=== PATIENT | female | born 1945 | race Caucasian/White ===

== ENCOUNTER 2017-02-02 10:18 | Outpatient (CLI) | payer MEDICARE, BC, MEDICAID ==
--- OUTSIDE RECORDS SUMMARY | 2017-02-02 10:36 | XMS | Clinical Summary ---
:1945 Author Organization [facility] Address [address] [place] [address] Phone Care Team Providers Name Role Phone , Primary Care Provider Unavailable Allergies Not on File Current Medications Not on file Active Problems Not on file Social History Tobacco Use Types Packs/Day Years Used Date Never Assessed Sex Assigned at Date Recorded Not on file Last Filed Vital Signs Not on file Plan of Treatment Not on file Results Not on filefrom Last 3 Months
--- NOTE | 2017-02-02 15:06 | CT ---
CT ABDOMEN WITH AND WITHOUT IV CONTRAST CT PELVIS WITH AND WITHOUT IV CONTRAST: Date: 02-02-17 History: History of recurrent urinary tract infections. Incomplete urinary bladder emptying. Comparison: CT angiogram of abdomen and pelvis, 06-07-12. FINDINGS: There is a 2.4 cm area of heterogeneity in the anterior segment of the right hepatic lobe previously seen on CT angiogram in 2012. Again, the exact etiology for this area of heterogeneity is uncertain . However, given stability over this period time suggests a nonaggressive process and could be relat ed to either prior hepatic injury or possibly related to shunting in this region. Liver otherwise duarte s a normal CT appearance. Multiple surgical clips are seen, likely related to prior cholecystectomy. There is subcentimeter hyperdense bilateral renal lesions, the majority of which are difficult to fu rther characterize. There is a hyperdense lesion in the region of the inferior pole right kidney kelly suring 1.8 cm, demonstrates fluid attenuation consistent with a cyst. There are two hyperdense cysti c lesions seen in the inferior pole right kidney with suggestion of mild enhancement of the more pos teriorly located hyperdense cystic structure. While this suggests enhancement, findings are thought most likely related to hyperdense Bosniak type II renal cystic lesions. Nevertheless, follow up eval uation is recommended given suggestion of mild enhancement. No additional enhancing renal lesion is seen bilaterally. Calcified granuloma is seen in the spleen. The bilateral adrenal glands and urinary bladder demonstrate a normal CT appearance. The distal righ t ureter is incompletely imaged due to artifact from bilateral total hip prostheses. Ureters otherwi se bilaterally have a normal appearance without a ureteral calculus seen. There are calcifications s een in the region of each renal hilum most likely related to vascular calcifications. Prominent vascular calcifications are again seen in the abdominal aorta involving the iliac arteries . Evidence of prior hysterectomy. Degenerative changes are seen in the spine. No other interval change. IMPRESSION: 1. Increased density cystic lesions inferior pole right kidney with suggestion of mild enhancement o f most posteriorly located hyperdense cystic lesions. These lesions are most likely related to Bosni ak type II cystic renal lesions, but suggestion of mild enhancement warrants continued follow up. 2. Bilateral renal cysts with too small to characterize hypodense renal lesions bilaterally. 3. Distal right ureter is not well seen due to artifact from bilateral hip prostheses, but there is no hydronephrosis or hydroureter and no definite ureteral calculus is visualized. 4. Stable area of heterogeneity in the right hepatic lobe of uncertain etiology. However, given stab ility since the prior study in 2013, suggests a nonaggressive process. 5. Hysterectomy. 6. Post cholecystectomy changes with persistent prominent dilatation of the extrahepatic common duct , stable from 2013. POS: [facility]
[2017-02-02] MEDS ORDERED: Iopamidol 370 76% 100 ML VIAL ONE (15:52)
== END 2017-02-02 10:19 | disposition home or self-care (01) ==
LOC: CT 10:18
PROVIDERS: ATTEND Urology
DX: N39.41 Urge incontinence (principal); R33.9 Retention of urine, unspecified; N28.1 Cyst of kidney, acquired; K76.89 Other specified diseases of liver; Z87.440 Personal history of urinary (tract) infections; Z90.710 Acquired absence of both cervix and uterus; Z90.49 Acquired absence of other specified parts of digestive tract
CPT/HCPCS: 74178

== ENCOUNTER 2017-04-01 10:24 | Outpatient (CLI) | payer MEDICARE, BC, MEDICAID ==
[2017-04-01 11:08] LABS: Anion Gap 13 mmol/L (10-20); BUN (Urea Nitrogen) 19 mg/dL (9.8-20.1); Calc. Creatinine Clearance 0 mL/min (70-130); Calcium 10.6 mg/dL (7.8-10.44); Carbon Dioxide 28 mmol/L (23-31); Chloride 103 mmol/L (98-107); Estimated GFR-MDRD 57
--- NOTE | 2017-04-01 12:52 | CT ---
CT ABDOMEN WITH AND WITHOUT IV CONTRAST: Indication: Evaluate ureteral cysts. Comparison: 02-02-17, 06-07-12 CTA angio run off examination. FINDINGS: There is a 1.4 and 1.5 cm hyperdense cyst involving the inferior pole of the right kidney that demons trates no appreciable enhancement on today's examination. There are additional Bosniak I type cysts i nvolving the right and left kidney. There are renal vascular calcifications bilaterally. Perinephric stranding is similar appearing. Gallbladder is surgically absent. A 2.9 cm hypodense lesion involving segment 6 of the right hepatic lobe with heterogeneous enhancemen t is stable since 2012 likely reflects a slightly atypical hemangioma. The pancreas and spleen appear within normal limits. Adrenal glands are normal appearing. There are prominent vascular calcifications noted involving the abdominal pelvic vasculature. There is slight dextroscoliosis of the lumbar spine. There is diffuse osteopenia. IMPRESSION: 1. Hyperdense lesions involving the inferior pole of the right kidney are consistent with highly prot einaceous or hemorrhagic type cysts. 2. There are bilateral simple appearing renal cysts. 3. Renal vascular calcifications seen bilaterally. 4. Stable hypodense lesion involving the right hepatic lobe likely reflective of slightly atypical he mangioma. POS: [facility]
[2017-04-01 15:59] LABS: Bilirubin Negative (Negative); Blood, Urine Negative (Negative); Glucose, Urine (Dipstick) Negative (Negative); Ketone, Urine Negative (Negative); Nitrite Negative (Negative); Protein, Urine (Dipstick) Trace mg/dL (Neg-Trace); Urobilinogen 0.2 mg/dL (0.2-1.0)
[2017-04-01 16:02] LABS: Bacteria/HPF None Seen HPF (None Seen); Hyaline Casts/LPF 0-3 HYALINE CAST LPF (0-3 Hyaline); RBC/HPF 0-3 HPF (0-3); Squamous Epithelial None Seen HPF (0-3); WBC/HPF None Seen HPF (0-3)
== END 2017-04-01 10:25 | disposition home or self-care (01) ==
LOC: CT 10:24
PROVIDERS: ATTEND Urology
DX: N39.41 Urge incontinence (principal); N28.1 Cyst of kidney, acquired; N28.89 Other specified disorders of kidney and ureter; Z87.440 Personal history of urinary (tract) infections
CPT/HCPCS: 36415; 74170; 80048; 81001; 87086

== ENCOUNTER 2018-04-11 17:26 | Emergency (ER) | payer MEDICARE, BC, MEDICAID ==
[2018-04-11 18:31] LABS: #Basophils 0.1 thou/uL (0.0-0.2); #Eosinphils 0.1 thou/uL (0.0-0.7); #Lymphocytes 1.3 thou/uL (1.20-3.40); #Monocytes 0.6 thou/uL (0.11-0.59); #Neutrophils 5.3 thou/uL (1.40-6.50); %Eosinophils 1.7 % (0.0-10.0); %Lymphocytes 17.8 % (21.0-51.0); %Monocytes 7.9 % (0.0-10.0); %Neutrophils 71.6 % (42.0-75.0); Hemoglobin 11.3 g/dL (12.0-16.0); Mean Corpuscular HGB CONC 32.2 g/dL (32.0-36.0); Mean Corpuscular Hemoglobin 30.8 pg (27.0-31.0); Mean Corpuscular Volume 95.7 fL (78.0-98.0); Mean Platelet Volume 7.2 fL (7.4-10.4); Platelet Count 347 thou/uL (130-400); RBC Distribution Width 12.8 % (11.5-14.5); Red Blood Cell (RBC) Count 3.68 mill/uL (4.20-5.40); White Blood Cell (WBC) Count 7.4 thou/uL (4.8-10.8)
--- NOTE | 2018-04-11 18:40 | CT ---
CT BRAIN: 04/11/2018 PROVIDED CLINICAL HISTORY: Altered mental status. COMPARISON: 11/01/2015 FINDINGS: The ventricular system appears normal in size and morphology. There is no evidence for intracranial hemorrhage or mass effect. Chronic microvascular white matter ischemic changes are redemonstrated. There is no evidence for an acute abnormality involving the extracranial soft tissues or osseous stru ctures. IMPRESSION: No evidence for intracranial hemorrhage or mass effect. POS: [facility]
[2018-04-11 18:47] LABS: ALT (SGPT) 12 U/L (8-55); AST (SGOT) 13 U/L (5-34); Albumin 3.1 g/dL (3.4-4.8); Alkaline Phosphatase 92 U/L (40-150); Anion Gap 12 mmol/L (10-20); BUN (Urea Nitrogen) 32 mg/dL (9.8-20.1); Bilirubin, Total 0.2 mg/dL (0.2-1.2); Calc. Creatinine Clearance 0 mL/min (70-130); Calcium 9.8 mg/dL (7.8-10.44); Carbon Dioxide 25 mmol/L (23-31); Chloride 106 mmol/L (98-107); Estimated GFR-MDRD 35; Globulin 2.6 g/dL (2.4-3.5); Glucose 85 mg/dL (83-110); Potassium 5.3 mmol/L (3.5-5.1); Protein, Total 5.7 g/dL (6.0-8.3); Sodium 138 mmol/L (136-145)
[2018-04-11 18:57] LABS: Bilirubin Negative (Negative); Blood, Urine Negative (Negative); Clarity CLOUDY (Clear); Glucose, Urine (Dipstick) Negative (Negative); Leukocyte Moderate (Negative); Nitrite Negative (Negative); Protein, Urine (Dipstick) Trace mg/dL (Neg-Trace); Specific Gravity, Urine 1.022 (1.002-1.036); Urobilinogen 0.2 mg/dL (0.2-1.0); pH, Urine 5.5 (5.0-9.0)
[2018-04-11 19:02] LABS: Bacteria/HPF 2+ HPF (None Seen); Hyaline Casts/LPF 4-6 HYALINE CAST LPF (0-3 Hyaline); Pathc Cast-AUWi Flag 0.43 (0-2.49); RBC/HPF None Seen HPF (0-3); Squamous Epithelial None Seen HPF (0-3); WBC/HPF 21-50 HPF (0-3)
[2018-04-11 19:08] LABS: Yeast-AUWi Flag 97.9 (0-25.0)
[2018-04-11 19:21] LABS: Yeast-All Forms None Seen HPF (None Seen)
== END 2018-04-11 22:50 ==
LOC: ERS 17:26
DX: N39.0 Urinary tract infection, site not specified (principal); R41.82 Altered mental status, unspecified; E11.9 Type 2 diabetes mellitus without complications; F03.90 Unspecified dementia, unspecified severity, without behavioral disturbance, psychotic disturbance, mood disturbance, and anxiety; G47.30 Sleep apnea, unspecified; D64.9 Anemia, unspecified; M81.0 Age-related osteoporosis without current pathological fracture; E78.5 Hyperlipidemia, unspecified; I10 Essential (primary) hypertension; I25.10 Atherosclerotic heart disease of native coronary artery without angina pectoris; J44.9 Chronic obstructive pulmonary disease, unspecified; F41.9 Anxiety disorder, unspecified; F32.9 Major depressive disorder, single episode, unspecified; Z79.899 Other long term (current) drug therapy; Z79.84 Long term (current) use of oral hypoglycemic drugs
CPT/HCPCS: 51701; 70450; 80053; 81003; 81015; 84484; 85025; 93005; 96360; A4353

== ENCOUNTER 2018-04-16 14:32 | Inpatient (IN) | payer MEDICARE, BC, MEDICAID ==
[2018-04-16 15:27] LABS: #Eosinphils 0.1 thou/uL (0.0-0.7); #Lymphocytes 0.8 thou/uL (1.20-3.40); #Monocytes 0.7 thou/uL (0.11-0.59); %Basophils 0.4 % (0.0-1.0); %Lymphocytes 6.7 % (21.0-51.0); %Monocytes 5.9 % (0.0-10.0); Hemoglobin 10.6 g/dL (12.0-16.0); Mean Corpuscular HGB CONC 32.4 g/dL (32.0-36.0); Mean Corpuscular Hemoglobin 31.6 pg (27.0-31.0); Mean Corpuscular Volume 97.5 fL (78.0-98.0); Mean Platelet Volume 7.2 fL (7.4-10.4); Platelet Count 352 thou/uL (130-400); RBC Distribution Width 12.6 % (11.5-14.5); Red Blood Cell (RBC) Count 3.36 mill/uL (4.20-5.40); White Blood Cell (WBC) Count 11.7 thou/uL (4.8-10.8)
[2018-04-16 16:00] LABS: Bilirubin Negative (Negative); Blood, Urine Negative (Negative); Clarity CLOUDY (Clear); Glucose, Urine (Dipstick) Negative (Negative); Leukocyte Large (Negative); Nitrite Negative (Negative); Protein, Urine (Dipstick) Trace mg/dL (Neg-Trace); Specific Gravity, Urine 1.019 (1.002-1.036); Urobilinogen 0.2 mg/dL (0.2-1.0); pH, Urine 5.5 (5.0-9.0)
[2018-04-16 16:03] LABS: Bacteria/HPF None Seen HPF (None Seen); RBC/HPF None Seen HPF (0-3); Yeast-AUWi Flag 7.8 (0-25.0)
[2018-04-16 16:04] LABS: Pathc Cast-AUWi Flag 5.81 (0-2.49)
--- NOTE | 2018-04-16 16:12 | CT ---
HEAD CT WITHOUT CONTRAST 04/16/18 COMPARISON: 04/11/18 HISTORY: Altered mental status, confusion. TECHNIQUE: Axial CT imaging at 5 mm intervals from vertex through skull base without contrast. FINDINGS: Imaged paranasal sinuses and mastoid air cells are well aerated. No displaced calvarial fracture. The re is atherosclerotic calcification of the cavernous carotid arteries. There is periventricular, deep, and subcortical white matter hypodensity, evidence of small vessel di sease, stable. Stable diffuse mild cerebral volume loss. Stable calcified lesion in the left frontal extra-axial region measures in the 7 mm range suggesting a calcified left frontal meningioma. IMPRESSION: Chronic findings as detailed above. No intracranial hemorrhage. POS: [facility]
--- NOTE | 2018-04-16 16:14 | RAD ---
CHEST ONE VIEW: 04/16/18 HISTORY: Cough, altered mental status. There are some minimal increased bronchovascular markings noted bilaterally with some patchy linear a nd parenchymal changes having more the appearance of chronic change or minimal subsegmental atelectas is, particularly in the left base. No confluent pneumonia or overt edema. IMPRESSION: Stable increased linear and interstitial markings bilaterally. No confluent pneumonia or other acute process. POS: [facility]
[2018-04-16 16:18] LABS: ALT (SGPT) 10 U/L (8-55); AST (SGOT) 13 U/L (5-34); Albumin 3.2 g/dL (3.4-4.8); Alkaline Phosphatase 97 U/L (40-150); Anion Gap 16 mmol/L (10-20); BUN (Urea Nitrogen) 42 mg/dL (9.8-20.1); Bilirubin, Total Less than 0.2 mg/dL (0.2-1.2); CK (CPK) 21 U/L (29-168); Calc. Creatinine Clearance 0 mL/min (70-130); Calcium 9.7 mg/dL (7.8-10.44); Carbon Dioxide 16 mmol/L (23-31); Chloride 110 mmol/L (98-107); Estimated GFR-MDRD 26; Globulin 2.5 g/dL (2.4-3.5); Glucose 134 mg/dL (83-110); Potassium 5.4 mmol/L (3.5-5.1); Protein, Total 5.7 g/dL (6.0-8.3); Sodium 137 mmol/L (136-145)
[2018-04-16 16:20] LABS: Hyaline Casts/LPF 7-10 HYALINE CAST LPF (0-3 Hyaline)
[2018-04-16] MEDS ORDERED: Piperacillin/Tazobactam 4.5 GM VIAL ONE (17:39)
[2018-04-16] MEDS ORDERED: Sodium Bicarb 50 MEQ/50 ML VIAL ONE (17:45)
[2018-04-16] MEDS ORDERED: Artificial Tear Sol 15 ML BOT EA EYE PRN (18:40)
[2018-04-16] MEDS ORDERED: Melatonin 3 MG TAB PO PRN (18:40)
[2018-04-16] MEDS ORDERED: Sodium Bicarbonate 150 MEQ in Dextrose 5% in Water 1,000 ML IV SCH (19:00)
[2018-04-16] MEDS ORDERED: Dextrose 5% in Water 1,000 ML IV PRN (19:02)
[2018-04-16] MEDS ORDERED: Dextrose 50% Abboject 50 ML SYRINGE SLOW IVP PRN (19:02)
[2018-04-16] MEDS ORDERED: HumaLOG 300 UNITS/3 ML VIAL SC PRN (19:02)
--- NOTE | 2018-04-16 20:04 | HP ---
PRIMARY CARE PROVIDER: Dr. De La Garza. CHIEF COMPLAINT: Weakness and mental status changes. HISTORY OF PRESENT ILLNESS: This is a 72-year-old female with history of hypertension, weakness and falls, depression, anxiety, bipolar disorder, dyslipidemia, peripheral vascular disease and carotid stenosis, hypertension, and COPD, who presents to the emergency room today from her intermediate, [facility] due to complaint of mental status changes and weakness. All of the history is obtained from the patient's daughter, Jannie Baltazar, her surrogate decision maker. Her daughter reports over the past two weeks that three antibiotics have been attempted for urinary tract infection. The patient has a history of recurrent UTIs, and sees Dr. Dhaval Gibbs in the outpatient setting. By chart review, it appears the antibiotics are Levaquin, Rocephin, and Bactrim with Rocephin initiated on April 12, and Levaquin yesterday. Her daughter has noticed that since April 11, her last emergency room visit where the antibiotics were changed, that the weakness has progressed. She states that normally the patient is able to sit up, dress herself and feed herself. She requires assistance with transfers due to weakness and uses a scooter at all times. The patient does fall a lot and has sustained a recent fracture of her tailbone last week. In addition to the weakness, the patient's baseline mental status has changed. Normally, the patient is conversant, would occasionally have times of confusion mostly with UTIs in the past. However, she has been not remembering, asking the same question repeatedly as well as 'speaking in gibberish'. The patient in addition has been coughing over the past few weeks and has had difficulty in keeping food and fluids down due to the coughing with associated vomiting today. Due to this, she has had poor p.o. intake today. Due to the worsening confusion, weakness, as well as presentation concerning for UTI, the patient was transferred to this facility. She did receive Zosyn 4.5 g, was started on D5, bicarb drip due to hyperkalemia, noted to have UTI, and an acute kidney injury for which the hospitalist was called for admission. ALLERGIES: AMBIEN. PAST MEDICAL HISTORY: Significant for, 1. Dry eyes. 2. Osteoarthritis. 3. Weakness and falls. 4. Insomnia. 5. Bipolar disorder, depression, and anxiety. 6. Dyslipidemia. 7. Obstructive sleep apnea. 8. Iron deficiency anemia. 9. Carotid artery stenosis. 10. Chronic pain and restless legs. 11. Peripheral vascular disease with history of bypass and stents. 12. Hypertension. 13. GERD. 14. COPD. 15. Allergic rhinitis. 16. Diabetes mellitus. PAST SURGICAL HISTORY: 1. Iliac artery bypass and her daughter thinks stent placement. 2. Bilateral hip replacement. 3. Left knee replacement. 4. Cholecystectomy. 5. Hysterectomy. SOCIAL HISTORY: The patient lives at [facility], no current alcohol, but does have a remote history of heavy alcohol use. No tobacco. FAMILY HISTORY: Significant for sister who of bladder cancer. CURRENT MEDICATIONS: Reconciled with the list provided by [facility]. 1. Gretchen 180 mg daily as needed. 2. Ceftriaxone 1 g q.24 hours. 3. Cranberry tablets 500 mg b.i.d. 4. Cymbalta 60 mg daily. 5. Dulcolax suppositories as needed. 6. Aspirin 325 mg daily. 7. Ferrous gluconate 324 mg b.i.d. 8. Gabapentin 300 mg b.i.d. 9. Levaquin 500 mg initiated yesterday. 10. Lipitor 10 mg at bedtime. 11. Maalox p.r.n. 12. Melatonin 3 mg two tablets at bedtime. 13. Meloxicam 15 mg at bedtime. 14. Metformin 500 mg b.i.d. 15. Milk of magnesia p.r.n. 16. MiraLAX 1/2 dose daily. 17. Nortriptyline 50 mg b.i.d. 18. Plavix 75 mg daily. 19. Protonix 40 mg daily. 20. Requip 0.25 mg three tablets at bedtime. 21. Risperidone 0.5 mg at bedtime. 22. Spiriva 2 puffs inhaled daily. 23. Systane eye drops as needed. 24. Multiple vitamin 1 tablet twice daily. 25. Tramadol 50 mg once daily for pain. 26. Tylenol Arthritis 650 mg every 4 hours as needed. 27. Tylenol No. 3 two tablets every 12 hours as needed. 28. Vitamin C 500 mg once daily. 29. Vitamin D3 of 2000 units once daily. REVIEW OF SYSTEMS: Obtained from the patient's daughter, who denies any fevers or chills. Positive for cough that is productive and vomiting associated with it, positive for pain in her sacrum and sacral ulcer, positive for weakness and a fall with most recent last week. In addition, pain in her right knee with a history of osteoarthritis. All other review of systems not reliable from the patient. PHYSICAL EXAMINATION: VITAL SIGNS: Her blood pressure is 153/72, pulse 84, respirations 18, sat is 93 % on 1 L, and temperature 98.7. GENERAL: She is awake, responsive, answers questions with short sentences. She is not in apparent distress. HEENT: Her pupils are equal and round. No scleral icterus. TMs are not visualized secondary to cerumen. Oral mucosa is pink and dry with mildly erythematous tongue. NECK: Supple, nontender. LYMPHATICS: No palpable cervical or supraclavicular lymphadenopathy. LUNGS: Have good air movement. Some scattered rhonchi. No audible rales. No audible wheezing. HEART: Normal S1 and S2. Regular rate and rhythm. No significant murmur. ABDOMEN: Soft with present bowel sounds, nontender, nondistended. EXTREMITIES: No pitting edema. SKIN: She has areas of ecchymosis on her arms, which are consistent with dual anti-platelet therapy. The patient has a sacral ulcer with a clean base. NEUROLOGIC STATUS: The patient is alert and responsive, she is aware of person and place. PSYCH: blunted affect LABORATORY DATA: Reviewed. CBC; 11.7, 10.6, 32.8, 352 with 86% neutrophils. Renal panel; 137, 5.4, 110, 16, 42, 1.88 with a glucose of 134. LFTs are normal except albumin 3.2, total protein 5.7. Troponin negative. Urinalysis shows greater than 50 white blood cells, 11 to 20 squamous cells, 7 to 10 hyaline casts. Large leukocyte esterase. EKG is personally reviewed. Sinus rhythm, normal axis, normal intervals. No ST changes. Brain CT, personally reviewed, which showed chronic findings of hypodensity of the white matter of the periventricular, deep and subcortical white matter, small vessel disease, stable and diffuse mild cerebral volume loss, stable calcified lesion of 7 mm in the left frontal meningioma. Chest x-ray is personally reviewed, stable. Increased linear interstitial markings bilateral. No confluent pneumonia or acute process. IMPRESSION: 1. Encephalopathy, likely multifactorial from three different antibiotics, diagnosis of Urinary tract infection, and multiple home medications. 2. Acute kidney injury with hyperkalemia. 3. Urinary tract infection, recurrent. 4. Sacral ulcer. 5. Cough with history of chronic obstructive pulmonary disease. 6. Hypertension, unknown control. 7. Depression, anxiety, and bipolar disorder, unknown control. 8. Osteoarthritis with pain at the right knee. 9. Anemia of chronic, normocytic, stable. 10. Dyslipidemia. 11. Peripheral vascular disease and history of carotid stenosis. 12. Chronic pain and restless legs syndrome. 13. Diabetes mellitus. PLAN: 1. Admission to the hospital. 2. Addressing the acute kidney injury and metabolic acidosis with a D5 with bicarb drip, monitoring her renal function, renal ultrasound, nephrology consult. 3. With the encephalopathy, we will discontinue all her prior antibiotics. Continue the Zosyn with renal dosing starting in 8 hours and monitoring the urine culture. Of note, I reviewed the prior urine cultures, which showed Pseudomonas and Escherichia coli. 4. Sacral ulcer. We will order wound care evaluation and treatment. 5. Concern for urinary retention. We will order bladder scan and in and out cath if greater than 200 mL. 6. For the cough with known COPD, we will schedule DuoNeb, and request incentive spirometer and nursing staff to work and support her on this. Will also initiate inhaled steroid, and prn cough medications. 7. We will monitor on telemetry given the hyperkalemia. 8. For diabetes, we will hold her metformin given her creatinine and order a sliding scale insulin and glucose checks. 9. Continuing the appropriate home medications. Due to the encephalopathy, I am holding multiple medications that I am uncertain of if they are interfering with her mental status or perhaps causing drug interactions. We will add back as appropriate. We will address her pain with Tylenol for now and monitor this for the osteoarthritis and chronic pain. Will also check RPR, Vitamin b12 and folate, and TSH. 10. For the weakness, PT/OT and IV fluid hydration. 11. DVT prophylaxis. The patient is on dual anti-platelet therapy. We will use SCDs. 12. GI prophylaxis not indicated. The patient is on a PPI. We will continue that. 13. Code status is full, and surrogate decision maker is the patient's daughter, Jannie Baltazar, phone #[phone]. 14. Reviewed the plan of care with the patient and her daughter. No questions or further needs at the end of evaluation. 15. The patient is at high risk given age, comorbidities, and current presentation. Job ID: [id number] [facility]
[2018-04-16 20:07] VITALS: BMI 23.0
[2018-04-16] MEDS: rOPINIRole HCl 0.25 MG TAB PO SCH (20:48)
[2018-04-16] MEDS: Nortriptyline HCl 25 MG CAP PO SCH (20:48)
[2018-04-16] MEDS: Atorvastatin Calcium 10 MG TAB PO SCH (20:48)
[2018-04-16] MEDS ORDERED: risperiDONE 0.25 MG TAB PO SCH (21:00)
[2018-04-16 21:36] LABS: Anion Gap 15 mmol/L (10-20); BUN (Urea Nitrogen) 41 mg/dL (9.8-20.1); Calc. Creatinine Clearance 30 mL/min (70-130); Calcium 9.3 mg/dL (7.8-10.44); Carbon Dioxide 18 mmol/L (23-31); Chloride 110 mmol/L (98-107); Estimated GFR-MDRD 30; Glucose 94 mg/dL (83-110); Potassium 5.3 mmol/L (3.5-5.1); Sodium 138 mmol/L (136-145)
--- NOTE | 2018-04-16 23:00 | ULT ---
BILATERAL RENAL ULTRASOUND COMPLETE: 04/16/18 HISTORY: Acute kidney insufficiency. The left kidney measures 9.2 x 5 x 4.4 cm. The right kidney measures 10.5 x 6 x 5.7 cm. Bladder is di stended with approximately 621 mL. Bilateral ureteral jets are seen. There are small bilateral renal cysts up to 2.6 cm. There is some diffuse renal cortical echogenicity, evidence for nonspecific chron ic renal disease. No renal hydronephrosis or perinephric process. IMPRESSION: No renal hydronephrosis or perinephric process. Bilateral renal cysts. Somewhat distended urinary lisa dder. POS: [facility]
[2018-04-16] MEDS: Albuterol Sulfate 1.25 MG/3 ML NEB NEB SCH ×3 (23:25→23:54)
--- NOTE | 2018-04-17 03:08 | CON ---
DATE OF CONSULTATION: 04/16/2018 NEPHROLOGY CONSULTATION: CONSULTING PHYSICIAN: Dr. Yoli Whitaker. REASON FOR CONSULT: Acute kidney injury and hyperkalemia. REASON FOR ADMISSION: Weakness and mental status changes. HISTORY OF PRESENT ILLNESS: This is a 72-year-old white female with past medical history of osteoarthritis, bipolar disorder, iron deficiency anemia, peripheral vascular disease, hypertension, COPD, diabetes, who came to the hospital with above complaints and was found to have elevated creatinine. The patient was recently treated for recurrent UTI with multiple antibiotics. On admission, her creatinine was found to be 1.88 from a baseline of 0.8 from October, it is 4 to 5 months back. She was found to have 1.88 and potassium of 5.4 with bicarb of 16. It was not associated with pyuria and WBC count 11.7. She was started on bicarb drip and repeat blood work showing creatinine of 1.66, potassium of 5.3. The patient is slightly confused, not able to give good history. No nausea, vomiting, no chest pain, no fever or chills reported to me. No skin rash. PAST MEDICAL HISTORY: Positive for osteoarthritis, insomnia, bipolar disorder, depression, anxiety, hyperlipidemia, obstructive sleep apnea, anemia, carotid artery stenosis, chronic peripheral vascular disease, hypertension, GERD, COPD, allergic rhinitis, type 2 diabetes. PAST SURGICAL HISTORY: Bilateral hip replacement, left knee replacement, cholecystectomy, and hysterectomy. HOME MEDICATIONS: Reviewed and include; 1. Gretchen. 2. Ceftriaxone. 3. Cymbalta. 4. Dulcolax. 5. Aspirin. 6. Ferrous gluconate. 7. Gabapentin. 8. Lipitor. 9. Maalox. 10. Melatonin. 11. Meloxicam. 12. Metformin. 13. MiraLAX. 14. Nortriptyline. 15. Plavix. 16. Protonix. 17. Requip. 18. Spiriva. 19. Systane. 20. Multivitamin. 21. Tylenol. 22. Vitamin C and D3. ALLERGIES: TO ZOLPIDEM. SOCIAL HISTORY: No smoking, alcohol, or illicit drug abuse. FAMILY HISTORY: No history of any kidney disease. REVIEW OF SYSTEMS: CONSTITUTIONAL: Negative for weight loss or gain, ability to conduct usual activities. SKIN: Negative for rash, itching. EYES: Negative for double vision, pain. ENT/MOUTH: Negative for nose bleeding, neck stiffness, pain, tenderness. CARDIOVASCULAR: Negative for palpitations, dyspnea on exertion, orthopnea. RESPIRATORY: Negative for shortness of breath, wheezing, cough, hemoptysis, fever or night sweats. GASTROINTESTINAL: Negative for poor appetite, abdominal pain, heartburn, nausea, vomiting, constipation, or diarrhea. GENITOURINARY: Negative for urgency, frequency, dysuria, nocturia. MUSCULOSKELETAL: Negative for pain, swelling. NEUROLOGIC/PSYCHIATRIC: Negative for anxiety, depression. ALLERGY/IMMUNOLOGIC: Negative for skin rash, bleeding tendency. PHYSICAL EXAMINATION: GENERAL: This is a thin-built, white female, in no apparent distress. VITAL SIGNS: Temperature 98.1, pulse 85, respiratory rate 16, blood pressure 144/60. HEENT: Atraumatic, normocephalic. Oral mucosa is dry. NECK: Supple. CARDIOVASCULAR: S1 and S2 heard. Rate and rhythm regular. RESPIRATORY: Clear. GASTROINTESTINAL: Abdomen is soft. MUSCULOSKELETAL: 1+ edema. DERMATOLOGIC: Ecchymosis present. NEUROLOGIC: Alert, no focal neuro deficits. Slightly confused, oriented to person. LABORATORY DATA: WBC 11.7, hemoglobin is 10.6. Potassium 5.3, bicarb 18, BUN 41, and creatinine is 1.6. ASSESSMENT AND PLAN: 1. Acute kidney injury, most likely from medication and polypharmacy noted. Agree with holding nephrotoxic agents and hydration as tolerated. 2. Metabolic acidosis. Agree with bicarb drip with close monitoring. 3. Hyperkalemia. Limit potassium in the diet. and bicarb drip. 4. . 5. Hypertension. 6. Urinary tract infection. Continue antibiotics and follow up cultures. 7. Type 2 diabetes. 8. Peripheral vascular disease. Acute kidney injury most likely from urinary tract infection and medications. Agree with current management. Avoid nephrotoxins and monitor labs closely. Thank you for the consult. We will follow. Job ID: [id number]
[2018-04-17] MEDS: Albuterol Sulfate 1.25 MG/3 ML NEB NEB SCH ×4 (04:07→08:34)
[2018-04-17] MEDS: Piperacillin/Tazobactam 2.25 GM in Sodium Chloride 0.9% 100 ML IVPB SCH ×4 (04:30→21:32)
[2018-04-17 05:08] LABS: #Basophils 0.1 thou/uL (0.0-0.2); #Eosinphils 0.2 thou/uL (0.0-0.7); #Monocytes 0.7 thou/uL (0.11-0.59); #Neutrophils 5.9 thou/uL (1.40-6.50); %Basophils 0.8 % (0.0-1.0); %Eosinophils 2.4 % (0.0-10.0); %Lymphocytes 12.3 % (21.0-51.0); %Monocytes 8.6 % (0.0-10.0); %Neutrophils 75.9 % (42.0-75.0); Hemoglobin 9.7 g/dL (12.0-16.0); Mean Corpuscular HGB CONC 31.8 g/dL (32.0-36.0); Mean Corpuscular Hemoglobin 31.2 pg (27.0-31.0); Mean Corpuscular Volume 97.9 fL (78.0-98.0); Mean Platelet Volume 7.4 fL (7.4-10.4); Platelet Count 308 thou/uL (130-400); RBC Distribution Width 12.6 % (11.5-14.5); Red Blood Cell (RBC) Count 3.12 mill/uL (4.20-5.40); White Blood Cell (WBC) Count 7.7 thou/uL (4.8-10.8)
[2018-04-17 05:27] LABS: Anion Gap 11 mmol/L (10-20); BUN (Urea Nitrogen) 38 mg/dL (9.8-20.1); Calc. Creatinine Clearance 34 mL/min (70-130); Calcium 9.2 mg/dL (7.8-10.44); Carbon Dioxide 24 mmol/L (23-31); Chloride 107 mmol/L (98-107); Estimated GFR-MDRD 36; Glucose 118 mg/dL (83-110); Potassium 4.8 mmol/L (3.5-5.1); Sodium 137 mmol/L (136-145)
[2018-04-17 05:47] LABS: Syphilis Antibody Nonreactive (Nonreactive); Syphilis Antibody Index 0.03 S/CO (<1.00 Non-Reactive)
[2018-04-17 06:02] LABS: Folate (Folic Acid) 16.7 ng/mL (7.0-31.4)
[2018-04-17] MEDS: Budesonide 0.5 MG/2 ML NEB INH SCH ×2 (06:30→19:08)
[2018-04-17] MEDS ORDERED: Albuterol Sulfate 1.25 MG/3 ML NEB NEB PRN (09:03)
[2018-04-17] MEDS: guaiFENesin ER 600 MG TAB PO SCH ×2 (10:02→21:32)
[2018-04-17] MEDS: DULoxetine 60 MG CAP PO SCH (10:02)
[2018-04-17] MEDS: Aspirin 325 MG TAB PO SCH (10:02)
[2018-04-17] MEDS: Nortriptyline HCl 25 MG CAP PO SCH ×2 (10:02→21:31)
[2018-04-17] MEDS: Clopidogrel Bisulfate 75 MG TAB PO SCH (10:02)
[2018-04-17] MEDS: Polyethylene Glycol 3350 17 GM Packet PO SCH (10:03)
--- NOTE | 2018-04-17 11:41 | PDOC.PN ---
- Subjective Encounter Start Date: 04/17/18 (f/u encephalopathy) Encounter Start Time: 11:40 Subjective: Pt didnt sleep last night - unknown reason. Is suspicious this morning -: about daughter and (who 7 years ago) -: denies any pain - Objective Resuscitation Status - Order Detail: 04/16/18 18:33 Resuscitation Status Routine Resuscitation Status: FULL: Full Resuscitation Vital Signs & Weight: Vital Signs (12 hours) Temp Pulse Resp BP Pulse Ox 04/17/18 07:40 98.2 F 89 18 130/60 92 L 04/17/18 06:32 81 18 93 L 04/17/18 06:30 81 18 93 L 04/17/18 02:52 97.9 F 81 16 148/63 H 98 Weight Weight 134 lb I&O: 04/16/18 04/17/18 04/18/18 06:59 06:59 06:59 Intake Total 856 Balance 856 Result Diagrams: 04/17/18 04:36 04/17/18 04:36 Additional Labs: Accuchecks 04/17/18 04/17/18 04/16/18 10:58 05:33 20:43 POC Glucose 144 H 105 91 EKG Reviewed by me: Yes (tele sinus 80's) Phys Exam - Physical Examination Constitutional: NAD Respiratory: no wheezing, no rhonchi some basilar rales bilateral, no audible wheezing Cardiovascular: RRR, no significant murmur Gastrointestinal: soft, non-tender, no distention, positive bowel sounds Musculoskeletal: no edema Neurological: non-focal Deviation from normal: alert to person, but not time/place/situation Dx/Plan (1) Encephalopathy Code(s): G93.40 - ENCEPHALOPATHY, UNSPECIFIED Status: Acute (2) MELISSA (acute kidney injury) Code(s): N17.9 - ACUTE KIDNEY FAILURE, UNSPECIFIED Status: Acute (3) Hyperkalemia Code(s): E87.5 - HYPERKALEMIA Status: Resolved (4) Anxiety and depression Code(s): F41.9 - ANXIETY DISORDER, UNSPECIFIED; F32.9 - MAJOR DEPRESSIVE DISORDER, SINGLE EPISODE, UNSPECIFIED Status: Chronic (5) Bipolar disorder Code(s): F31.9 - BIPOLAR DISORDER, UNSPECIFIED Status: Chronic Qualifiers: Active/Remission status: remission status unspecified Qualified Code(s): F31.9 - Bipolar disorder, unspecified (6) Sacral ulcer Code(s): L98.429 - NON-PRESSURE CHRONIC ULCER OF BACK WITH UNSPECIFIED SEVERITY Status: Acute (7) Cough Code(s): R05 - COUGH Status: Acute - Plan * Encephalopathy - unchanged by my evaluation and not sleeping last night worsens the situation * continue home meds- increase melatonin to 6 mg home dose * UTI - on rocephin - anticipate if cx remains negative tomorrow that all antibiotics can be stopped. Pt with pyuria and has been on multiple antibiotics * bladder scan today to eval for urinary retention * thyroid, syphillis and vitamin studies all normal * hyperkalemia resolved - appreciate Dr. Dudley's care * MELISSA improved * Mood - continue home meds. Given the lack of sleep, will increase the risperidone to 1 mg at night * pt with rales on exam - monitor, may need a dose of lasix * copd - continue nebs and incentive spirometer, and inhaled steroid. No indication for additional abx * DM - blood sugars controlled * falls precautions/bed alarm * * dvt prophy - scds * gi prphy - not indictaed * code status full * * reviewed plan of care with patient's daughter, no questions or further needs at end of eval. * * I/O cath this afternoon with 700 ml urine drained from bladder. Continue i/o cath with goal of avoiding an indwelling franks catheter.
--- NOTE | 2018-04-17 19:07 | PRG ---
DATE OF SERVICE: 04/17/2018 SUBJECTIVE: Patient was seen and examined at bedside and overnight events noted. Patient denies any shortness of breath or chest pain or palpitation. No history of nausea or vomiting or diarrhea or fever or chills or cramps. OBJECTIVE: GENERAL: This is an elderly female, in no apparent distress. VITAL SIGNS: Temperature 98.9, heart rate 95, respiratory rate 20, blood pressure 142/66. HEENT: Atraumatic, normocephalic. Oral mucosa is moist NECK: Supple. CARDIOVASCULAR: S1, S2 heard. Rate and rhythm regular. RESPIRATORY: Clear to auscultation. GASTROINTESTINAL: Abdomen is soft. MUSCULOSKELETAL: No tenderness. No edema. DERMATOLOGIC: No skin rash. NEUROLOGIC: Alert and awake and oriented X3. No focal neurologic deficits. Moving all the extremities. PSYCHIATRIC: Mood and affect normal. LABORATORY DATA: Potassium is 4.8, BUN is 38, and creatinine 1.4. ASSESSMENT AND PLAN: 1. Acute kidney injury, much better. 2. Metabolic acidosis, stable. 3. Hyperkalemia. 4. Hypertension, stable. 5. Type 2 diabetes. Avoid nephrotoxins. Renal function is stable. Potassium and acidosis are better. We will stop IV fluids and monitor renal function. We will follow. Job ID: [id number]
[2018-04-17] MEDS: rOPINIRole HCl 0.25 MG TAB PO SCH (21:31)
[2018-04-17] MEDS: Atorvastatin Calcium 10 MG TAB PO SCH (21:31)
[2018-04-17] MEDS: Melatonin 3 MG TAB PO SCH (21:32)
[2018-04-17] MEDS: Temazepam 15 MG CAP PO PRN (21:34)
[2018-04-17] MEDS ORDERED: HumaLOG 300 UNITS/3 ML VIAL SC PRN (21:49)
[2018-04-17] MEDS: Acetaminophen 325 MG TAB PO PRN (21:50)
[2018-04-18] MEDS: Piperacillin/Tazobactam 2.25 GM in Sodium Chloride 0.9% 100 ML IVPB SCH ×2 (03:16→07:59)
[2018-04-18] MEDS: Acetaminophen 325 MG TAB PO PRN (03:25)
[2018-04-18] MEDS: HumaLOG 300 UNITS/3 ML VIAL SC PRN (04:49)
[2018-04-18] MEDS: Budesonide 0.5 MG/2 ML NEB INH SCH ×2 (06:31→18:28)
[2018-04-18] MEDS: DULoxetine 60 MG CAP PO SCH (07:59)
[2018-04-18] MEDS: Polyethylene Glycol 3350 17 GM Packet PO SCH (07:59)
[2018-04-18] MEDS: Aspirin 325 MG TAB PO SCH (07:59)
[2018-04-18] MEDS: Nortriptyline HCl 25 MG CAP PO SCH ×2 (08:00→21:09)
[2018-04-18] MEDS: Clopidogrel Bisulfate 75 MG TAB PO SCH (08:00)
[2018-04-18] MEDS: guaiFENesin ER 600 MG TAB PO SCH ×2 (08:00→21:09)
--- NOTE | 2018-04-18 09:54 | PDOC.PN ---
- Subjective Encounter Start Date: 04/18/18 Encounter Start Time: 10:50 Subjective: Patient reports some nausea. No other complaints. Not eating well. -: Continuing post void residuals greater than 200mL. - Objective Resuscitation Status - Order Detail: 04/16/18 18:33 Resuscitation Status Routine Resuscitation Status: FULL: Full Resuscitation MAR Reviewed: Yes Vital Signs & Weight: Vital Signs (12 hours) Temp Pulse Resp BP Pulse Ox 04/18/18 07:58 98.4 F 95 18 180/81 H 91 L 04/18/18 06:29 90 16 92 L 04/18/18 03:13 98.1 F 92 18 159/81 H 93 L 04/18/18 00:11 88 16 91 L 04/17/18 23:28 98.3 F 83 18 137/73 92 L Weight Weight 134 lb I&O: 04/17/18 04/18/18 04/19/18 06:59 06:59 06:59 Intake Total 856 700 Output Total 2285 Balance 856 -1585 Result Diagrams: 04/17/18 04:36 04/18/18 04:36 Additional Labs: Accuchecks 04/18/18 04/17/18 04/17/18 04:39 19:49 16:39 POC Glucose 208 H 263 H 239 H 04/17/18 10:58 POC Glucose 144 H Phys Exam - Physical Examination Constitutional: NAD HEENT: moist MMs Respiratory: no wheezing, no rales, no rhonchi Cardiovascular: RRR, no significant murmur Gastrointestinal: soft, positive bowel sounds mild TTP JAZLYN Neurological: non-focal, moves all 4 limbs Psychiatric: normal affect Dx/Plan (1) Encephalopathy Code(s): G93.40 - ENCEPHALOPATHY, UNSPECIFIED Status: Acute Comment: Possibly progressive dementia. Uncertain if related to urinary retention and ARF. Urine culture remains negative. Doubt UTI with multiple recent antibiotic courses and no bacteria in urine. Mental status improved some this AM per daughter. (2) Pyuria, sterile Code(s): N39.0 - URINARY TRACT INFECTION, SITE NOT SPECIFIED Status: Acute Comment: Urine culture negative and multiple recent abx courses without improvement. Will switch to oral abx to complete current course. (3) Urinary retention Code(s): R33.9 - RETENTION OF URINE, UNSPECIFIED Status: Acute Comment: in and out caths, consult Urology telephone services sales representative. Had previously seen Dr. Chao so I called Dr. Chao and she stated that patient was to be evaluated for chronic UTI, but kept canceling appointments and eventually Dr. Chao stopped seeing the patient. (4) MELISSA (acute kidney injury) Code(s): N17.9 - ACUTE KIDNEY FAILURE, UNSPECIFIED Status: Acute Comment: Improving, uncertain eitiology, Dr. Dudley following (5) Hyperkalemia Code(s): E87.5 - HYPERKALEMIA Status: Resolved (6) Anxiety and depression Code(s): F41.9 - ANXIETY DISORDER, UNSPECIFIED; F32.9 - MAJOR DEPRESSIVE DISORDER, SINGLE EPISODE, UNSPECIFIED Status: Chronic (7) Bipolar disorder Code(s): F31.9 - BIPOLAR DISORDER, UNSPECIFIED Status: Chronic Qualifiers: Active/Remission status: remission status unspecified Qualified Code(s): F31.9 - Bipolar disorder, unspecified (8) Cough Code(s): R05 - COUGH Status: Acute (9) Sacral ulcer Code(s): L98.429 - NON-PRESSURE CHRONIC ULCER OF BACK WITH UNSPECIFIED SEVERITY Status: Acute - Plan cont current plan of care, continue antibiotics, DVT proph w/SCDs Urology consult for urinary retention with ARF. Abx transitioned to oral. -: Possible d/c once urinary retention issues addressed. * . - Discharge Day Encounter end time: 11:00
[2018-04-18 10:06] LABS: Anion Gap 14 mmol/L (10-20); BUN (Urea Nitrogen) 38 mg/dL (9.8-20.1); Calc. Creatinine Clearance 33 mL/min (70-130); Calcium 9.3 mg/dL (7.8-10.44); Carbon Dioxide 24 mmol/L (23-31); Chloride 108 mmol/L (98-107); Estimated GFR-MDRD 35; Glucose 121 mg/dL (83-110); Sodium 141 mmol/L (136-145)
[2018-04-18] MEDS ORDERED: Ondansetron ODT 4 MG TAB PO PRN (13:18)
[2018-04-18] MEDS: Ondansetron PF 4 MG/2 ML Vial IVP PRN (13:57)
--- NOTE | 2018-04-18 14:49 | CON ---
DATE OF CONSULTATION: 04/18/2018 Referring is Primary Service, Family Medicine, Bhavik Ascencio MD HISTORY OF PRESENT ILLNESS: Ms. Forman is a 72-year-old female, whom I had seen back in April 2017. She had a scheduled appointment with me; however, declined subsequent followup appointment. The patient currently admitted due to mental status changes, incomplete void, and history of UTI. Daughter requesting for me to evaluate her. She is a surrogate decision maker. Despite her mother's noncompliance, I am here to do a consultation on this patient. There is a history of mental status changes, daughter concerned regarding lethargy, weakness, presented from [facility]. Ms. Forman has a history of diabetes , peripheral neuropathy, and vascular dementia, with history of urge incontinence. She did present with history of recurrent UTI signs and symptoms usually of mental status change. She had mild incomplete void of postvoid residual of 120 mL, I was able to pass a 14-Japanese catheter without significant issues. Upper tract workup demonstrates incidental multiple hyperdense renal cyst with mild enhancement consistent with Bosniak 2, advised regarding surveillance. She does have a history of significant constipation, noncompliant with the regimen as she continues to consume 3 to 4 cups of diet Coke per day. CT of renal mass protocol was previously obtained demonstrating hyperdense renal cyst with no evidence of enhancement therefore on surveillance. She has been previously informed regarding issues with chronic constipation resulting an incomplete void, perineal colonization, increased risk of UTI, bacteria reviewed. On her last visit April 15, 2017, advised to continue Keflex for low-dose prophylaxis based on her prior urine culture. No subsequent followup due to noncompliance. She is currently admitted as there is a history of mental status change, her workup demonstrates no evidence of abnormality on CT of the brain. Renal ultrasound demonstrates no hydronephrosis; however, bladder appears to be somewhat distended at 621 mL. She has been managed with clean intermittent catheterization since admission by Primary Service. She did have a large bowel movement this morning with subsequent PVR 0 per nursing staff. Prior PVR bladder scan is 200 to 300 mL. Prior to presenting to the hospital, the patient relates that she has not had a bowel movement for approximately 1 week. Urine culture reviewed since I have seen her demonstrating Proteus and E. coli, has been on Rocephin through the pen[facility]iary. Repeat urine culture is negative. PAST MEDICAL HISTORY: Diabetes, hypertension, arthritis, anxiety, neuropathy, sleep apnea, headaches, dementia, alcoholism, constipation, chronic COPD, restless leg , bipolar, vascular, Parkinson's, and chronic constipation followed by Dr. Rivera. PAST SURGICAL HISTORY: Hip replacement, right leg bypass, cholecystectomy, hysterectomy, cystoscopy, urethral calibration, dilatation with no evidence of stenosis, April 15, 2017, which I performed. ALLERGIES: ALLERGIC TO AMBIEN. SOCIAL HISTORY: She lives in a penitentiary, [facility]. CURRENT MEDICATIONS: Include; 1. Tylenol. 2. Albuterol. 3. DuoNeb. 4. A 325 mg of aspirin. 5. Insulin sliding scale. 6. Melatonin. 7. Nortriptyline. 8. Protonix. 9. MiraLAX. 10. Risperidone. 11. ReQuip. 12. She is provided Zosyn from the emergency room. 13. Currently on cefdinir 300 mg 1 p.o. daily. PHYSICAL EXAMINATION: VITAL SIGNS: Her vital signs are stable. GENERAL: The patient is a flat affect. Daughter at bedside, who is her power of staff attorney. HEENT: Grossly unremarkable. HEART: Regular rate. LUNGS: Clear. ABDOMEN: Soft. No rigidity. No rebound. : Demonstrates atrophic vaginitis. Digital rectal exam demonstrates empty rectal vault with no significant stool of concern. At the bedside commode, there is a significant amount of large stool with voided urine. exam demonstrates atrophic vaginitis. Urethral meatus is easily visible. No significant prolapse of concern. EXTREMITIES: No cyanosis, clubbing, or edema. PERTINENT LABS: White count is 7, hemoglobin 9.7, and platelet 308. Creatinine 1.4. Baseline creatinine is 0.8. Admitting creatinine is 1.8. Hemoglobin A1c January 2018 is 5.1. Urinalysis on this admission demonstrates greater than 50 wbc's, otherwise unremarkable. Culture negative. Prior urine culture on April 01 demonstrates E. coli, sensitive to cephalosporins except cefoxitin, sensitive to gentamicin, sensitive to Rocephin, Bactrim, and Macrobid. On May 26, 2017, Pseudomonas UTI. Urine culture positive. Renal ultrasound on this admission demonstrates no evidence of hydronephrosis, renal cysts. Bladder is distended with [address] negative. IMAGING STUDIES: CT of the abdomen and pelvis with and without IV contrast February 02, 2017. Subcentimeter hyperdense bilateral renal cyst, difficult to characterize. Renal mass protocol March 2017, hyperdense right lower pole renal cyst consistent with proteinaceous/hemorrhagic renal cyst with no enhancement. Additional Bosniak 1 type cyst involving the right and left kidney. Renal vascular calcifications. Stable hypodense hepatic lesion. IMPRESSION: Ms. Forman is a 72-year-old female with past medical history; 1. Diabetes. 2. Neuropathy. 3. Peripheral vascular disease. 4. History of alcohol abuse. 5. History of chronic constipation. 6. History of urge incontinence. 7. History of recurrent urinary tract infection. 8. Hyperdense renal cyst on surveillance. RECOMMENDATION: Current admission due to mental status changes, acute kidney injury multifactorial, likely prerenal and renal. I agree with CIC to continue. As she has significant constipation, strict bowel regimen is pertinent and necessary to aid in better voiding status. Her last postvoid residual per nursing staff is 0 after a large bowel movement. Continue time double voiding every 6 hours, if PVR is greater than 250-300 mL, CIC is advised. Pending the clinical course, I hope that she will not require an indwelling Watson catheter. PT evaluation treatment to continue for rehab. Agree with cefdinir for antibiotic regimen, for complicated UTI, recommend treatment for a minimum of 7 to 10 days pending her course of CIC/PVR assessment. It is of utmost importance to avoid severe constipation Job ID: [id number] [facility]
--- NOTE | 2018-04-18 14:54 | PRG ---
DATE OF SERVICE: 04/18/2018 SUBJECTIVE: A 72-year-old female being seen for acute kidney injury. The patient denies any nausea, vomiting, or chest pain. OBJECTIVE: See above. CONSTITUTIONAL: Awake, alert, in no acute distress. VITAL SIGNS: Afebrile. GENERAL APPEARANCE AND MENTAL STATUS: Fair. HEAD/NECK: Normocephalic. Atraumatic. EYES: EOMI. No deformity. EARS: Clear. No ulcers. NOSE: Intact. No lesions. MOUTH: Clear. No discharge. THROAT: Clear. No exudate. LUNGS: Clear. No crackles. CARDIAC: S1, S2. No rub. ABDOMEN: Benign. Bowel sounds positive. GENITALIA/RECTUM: Watson absent. BACK/EXTREMITIES: Edema 0+. NEUROLOGICAL: Alert and motor intact. SKIN: LYMPHATICS: LABORATORY DATA: Creatinine is pending. ASSESSMENT AND PLAN: 1. Acute kidney injury with chronic kidney disease most likely due to . 2. Hypertension, stable. 3. Anemia, stable. 4. Medication based on GFR appropriate. 5. we will titrate home medications. Job ID: [id number]
[2018-04-18] MEDS: Atorvastatin Calcium 10 MG TAB PO SCH (21:09)
[2018-04-18] MEDS: rOPINIRole HCl 0.25 MG TAB PO SCH (21:09)
[2018-04-18] MEDS: Temazepam 15 MG CAP PO PRN (21:09)
[2018-04-18] MEDS: Cefdinir 300 MG CAP PO SCH (21:09)
[2018-04-18] MEDS: risperiDONE 1 MG TAB PO SCH (21:10)
[2018-04-18] MEDS: Melatonin 3 MG TAB PO SCH (21:10)
[2018-04-19] MEDS: Budesonide 0.5 MG/2 ML NEB INH SCH ×2 (08:43→19:11)
[2018-04-19] MEDS: DULoxetine 60 MG CAP PO SCH (08:58)
[2018-04-19] MEDS: Aspirin 325 MG TAB PO SCH (08:58)
[2018-04-19] MEDS: Clopidogrel Bisulfate 75 MG TAB PO SCH (08:58)
[2018-04-19] MEDS: Nortriptyline HCl 25 MG CAP PO SCH ×2 (08:58→21:22)
[2018-04-19] MEDS: Cefdinir 300 MG CAP PO SCH ×2 (08:58→21:22)
[2018-04-19] MEDS: guaiFENesin ER 600 MG TAB PO SCH ×2 (08:59→21:22)
[2018-04-19] MEDS: Polyethylene Glycol 3350 17 GM Packet PO SCH (09:00)
[2018-04-19] MEDS: Acetaminophen 325 MG TAB PO PRN ×2 (09:04→21:29)
[2018-04-19] MEDS: Ondansetron PF 4 MG/2 ML Vial IVP PRN (09:05)
[2018-04-19] MEDS ORDERED: Senokot 8.6 MG TAB PO PRN (09:31)
--- NOTE | 2018-04-19 09:33 | PDOC.PN ---
- Subjective Encounter Start Date: 04/19/18 Encounter Start Time: 10:30 Subjective: Patient without complaints. No events overnight. Residuals improved -: with large BM yesterday. - Objective Resuscitation Status - Order Detail: 04/16/18 18:33 Resuscitation Status Routine Resuscitation Status: FULL: Full Resuscitation MAR Reviewed: Yes Vital Signs & Weight: Vital Signs (12 hours) Temp Pulse Resp BP Pulse Ox 04/19/18 08:42 106 H 20 04/19/18 08:00 98.3 F 105 H 18 164/94 H 91 L 04/19/18 00:24 89 14 91 L 04/18/18 23:05 97.7 F 94 18 167/84 H 92 L Weight Admit Weight 134 lb Weight 134 lb I&O: 04/18/18 04/19/18 04/20/18 06:59 06:59 06:59 Intake Total 700 250 Output Total 2285 465 Balance -1585 -215 Result Diagrams: 04/19/18 09:37 04/19/18 09:37 Additional Labs: Accuchecks 04/19/18 04/18/18 04/18/18 06:01 20:36 17:34 POC Glucose 127 H 132 H 133 H 04/18/18 11:16 POC Glucose 121 H Phys Exam - Physical Examination Constitutional: NAD HEENT: moist MMs Respiratory: no wheezing, no rales, no rhonchi Cardiovascular: RRR, no significant murmur Gastrointestinal: soft, non-tender, positive bowel sounds sacral dressing in place Neurological: non-focal, moves all 4 limbs Psychiatric: normal affect Dx/Plan (1) Encephalopathy Code(s): G93.40 - ENCEPHALOPATHY, UNSPECIFIED Status: Acute Comment: Improved. Possibly related to constipation and urinary retention, persistent UTI. On Cefdinir. Large BM yest with Miralax and urinary retention improved. (2) Pyuria, sterile Code(s): N39.0 - URINARY TRACT INFECTION, SITE NOT SPECIFIED Status: Acute Comment: Urine culture negative and multiple recent abx courses without improvement. Will switch to oral abx to complete current course. (3) Urinary retention Code(s): R33.9 - RETENTION OF URINE, UNSPECIFIED Status: Acute Comment: in and out caths, appreciate Dr. Chao's assistance with this patient (4) MELISSA (acute kidney injury) Code(s): N17.9 - ACUTE KIDNEY FAILURE, UNSPECIFIED Status: Acute Comment: Improving, uncertain eitiology, Dr. Dudley following (5) Hyperkalemia Code(s): E87.5 - HYPERKALEMIA Status: Resolved (6) Anxiety and depression Code(s): F41.9 - ANXIETY DISORDER, UNSPECIFIED; F32.9 - MAJOR DEPRESSIVE DISORDER, SINGLE EPISODE, UNSPECIFIED Status: Chronic (7) Bipolar disorder Code(s): F31.9 - BIPOLAR DISORDER, UNSPECIFIED Status: Chronic Qualifiers: Active/Remission status: remission status unspecified Qualified Code(s): F31.9 - Bipolar disorder, unspecified (8) Cough Code(s): R05 - COUGH Status: Acute (9) Sacral ulcer Code(s): L98.429 - NON-PRESSURE CHRONIC ULCER OF BACK WITH UNSPECIFIED SEVERITY Status: Acute - Plan cont current plan of care, continue antibiotics, PT/OT, DVT proph w/SCDs Possibly back to SNF tomorrow * . - Discharge Day Encounter end time: 10:40
--- NOTE | 2018-04-19 09:45 | PRG ---
DATE OF SERVICE: 04/19/2018 SUBJECTIVE: The patient is alert and awake, oriented x1, confused. OBJECTIVE: VITAL SIGNS: Stable. Temperature 97.7, pulse 89, respirations 14, O2 sat 91%, blood pressure 167/84. Voiding diary, PVR results reviewed. Her postvoid residual has varied from minimal/0 to largest catheterized amount 425 mL. ABDOMEN: Soft, nontender, nondistended. EXTREMITIES: No cyanosis, clubbing, or edema. PERTINENT LABORATORY DATA: There are no new labs. Last creatinine of record is 1.48. Repeat urine culture from 04/16 is negative. 04/01, urine culture, Escherichia coli. Currently on cefdinir appropriate on sensitivity. IMPRESSION AND PLAN: Ms. Forman is a 72-year-old female with past medical history of: 1. Diabetes. 2. Peripheral vascular disease. 3. Alcohol abuse. 4. Chronic constipation. 5. Urge incontinence. 6. Recurrent urinary tract infection. 7. History of hyperdense renal cyst, on surveillance. Current admission due to UTI, renal insufficiency multifactorial, with significant constipation. Voiding diary, PVR results reviewed. As her postvoid residual is variable, I am optimistic that with appropriate encouragement, regaining her strength that she should be able to empty her bladder more efficiently. Nursing staff is advised to prompt patient to void every 6 hours, she needs much encouragement to be out of bed and assist. After appropriate attempt to void/double voiding, postvoid residual to be monitored and CIC parameters in chart. will continue to follow. Due to patient's deconditioned status, consider rehab, fdc facility, for disposition. From my perspective, the patient can be considered for transfer pending medical clearance. Job ID: [id number] [facility]
[2018-04-19 09:55] LABS: Hemoglobin 11.8 g/dL (12.0-16.0)
--- NOTE | 2018-04-19 11:42 | PQF ---
DATE: 04-19-18 ATTN: DR. NICOLETTE NICE Please exercise your independent, professional judgment in responding to the clarification form. Clinical indicators are provided on the bottom of this form for your review Please check appropriate box(s): [ ] Encephalopathy: Type: [ X ] Acute [ ] Subacute [ ] Chronic Etiology: [ X ] Metabolic [ ] Toxic [ ] Other (please specify) [ ] Transient Alteration of Awareness [ ] Other diagnosis [ ] Unable to determine In addition, please specify: Present on Admission (POA): [ X ] Yes [ ] No [ ] Unable to determine For continuity of documentation, please document condition throughout progress notes and discharge summary. Thank You. CLINICAL INDICATORS - SIGNS / SYMPTOMS / LABS H&P: ENCEPHALOPATHY, LIKELY MULTIFACTORIAL FROM THREE DIFFERENT ANTIBIOTICS, DIAGNOSIS OF UTI, AND MULTIPLE HOME MEDICATIONS. PN DR. NICE 04-19-18: ACUTE ENCEPHALOPATHY RISK FACTORS: H&P: ENCEPHALOPATHY, LIKELY MULTIFACTORIAL FROM THREE DIFFERENT ANTIBIOTICS, DIAGNOSIS OF UTI, AND MULTIPLE HOME MEDICATIONS. TREATMENTS: MAR: OMNICEF PO, ZOSYN IV ER: ZOSYN IV, IVF (This form is maintained as a part of the permanent medical record) 2014 [employer] All Rights Reserved GEN [email or web address] Office: [phone] [facility]
[2018-04-19 11:57] LABS: Anion Gap 20 mmol/L (10-20); BUN (Urea Nitrogen) 12 mg/dL (9.8-20.1); Calc. Creatinine Clearance 63 mL/min (70-130); Calcium 10.1 mg/dL (7.8-10.44); Carbon Dioxide 13 mmol/L (23-31); Chloride 109 mmol/L (98-107); Estimated GFR-MDRD 72; Potassium 4.7 mmol/L (3.5-5.1); Sodium 137 mmol/L (136-145)
--- NOTE | 2018-04-19 12:59 | PRG ---
DATE OF SERVICE: 04/19/2018 SUBJECTIVE: A 72-year-old female being seen for acute kidney injury. The patient denies any nausea, vomiting, or chest pain. OBJECTIVE: VITAL SIGNS: Afebrile. Pulse 100, breathing 16, blood pressure 164/94. CONSTITUTIONAL: Awake, alert, in no acute distress. GENERAL APPEARANCE AND MENTAL STATUS: Fair. HEAD/NECK: Normocephalic. Atraumatic. EYES: EOMI. No deformity. EARS: Clear. No ulcers. NOSE: Intact. No lesions. MOUTH: Clear. No discharge. THROAT: Clear. No exudate. LUNGS: Clear. No crackles. CARDIAC: S1, S2. No rub. ABDOMEN: Benign. Bowel sounds positive. GENITALIA/RECTUM: Watson absent. BACK/EXTREMITIES: Edema 0+. NEUROLOGICAL: Alert and motor intact. LABORATORY DATA: Hemoglobin 12.8, creatinine is 1.4. IMPRESSION: 1. Acute kidney injury, improved. 2. Hypertension, stable. 3. Anemia, stable. 4. Medications based on GFR appropriate. 5. The patient will follow up to see us in two weeks. Job ID: [id number]
[2018-04-19 13:28] LABS: Glucose 127 mg/dL (83-110)
[2018-04-19] MEDS: HumaLOG 300 UNITS/3 ML VIAL SC PRN (17:16)
[2018-04-19] MEDS: Melatonin 3 MG TAB PO SCH (21:20)
[2018-04-19] MEDS: rOPINIRole HCl 0.25 MG TAB PO SCH (21:22)
[2018-04-19] MEDS: Atorvastatin Calcium 10 MG TAB PO SCH (21:22)
[2018-04-19] MEDS: Temazepam 15 MG CAP PO PRN (21:23)
[2018-04-19] MEDS: risperiDONE 1 MG TAB PO SCH (21:23)
[2018-04-20] MEDS: Budesonide 0.5 MG/2 ML NEB INH SCH ×2 (07:30→18:58)
[2018-04-20 07:38] LABS: Anion Gap 11 mmol/L (10-20); BUN (Urea Nitrogen) 17 mg/dL (9.8-20.1); Calc. Creatinine Clearance 68 mL/min (70-130); Calcium 9.6 mg/dL (7.8-10.44); Carbon Dioxide 24 mmol/L (23-31); Chloride 106 mmol/L (98-107); Estimated GFR-MDRD 79; Glucose 124 mg/dL (83-110); Potassium 3.8 mmol/L (3.5-5.1); Sodium 137 mmol/L (136-145)
--- NOTE | 2018-04-20 08:13 | PRG ---
DATE OF SERVICE: 04/20/2018 SUBJECTIVE: The patient is resting comfortably. OBJECTIVE: VITAL SIGNS: Stable. She is afebrile. Voiding diary reviewed with nursing staff. She is voiding and urethral void variable from 200 to 350 mL, her postvoid residual is variable from less than 50 mL to largest catheterized amount 350 mL. ABDOMEN: Soft, nontender, nondistended. PERTINENT LABORATORY DATA: 1. A repeat urine culture negative on 04/16. 2. On 04/01, urine culture for E coli, treated, currently on cefdinir. IMPRESSION AND PLAN: Ms. Forman is a 72-year-old female. 1. Deconditioned. 2. History of alcohol abuse. 3. History of chronic constipation. 4. History of urge incontinence. 5. Recurrent urinary tract infection. 6. History of hyperdense renal cyst on surveillance. Renal ultrasound obtained on this admission dated 04/16 demonstrates no evidence of hydronephrosis. Bilateral renal cysts. 7. Acute kidney injury, resolved. Creatinine back to baseline. Admitted with E. coli UTI on this admission with postvoid residual documented as 621 mL. I do recommend the patient continue to be scanned at the nursing facility every 8 hours. If postvoid residual is greater than 300 mL, she is to have clean intermittent catheterization performed. Followup appointment with me in chart. Voiding diary, postvoid residual needs to be documented with followup appointment. Orders in chart. Can discharge to rehab when medically stable, probably today. Job ID: [id number]
--- NOTE | 2018-04-20 08:14 | PDOC.PN ---
- Subjective Encounter Start Date: 04/20/18 Encounter Start Time: 09:50 Subjective: Patient without complaints. No SOB. Had a larger residual again this -: morning. - Objective Resuscitation Status - Order Detail: 04/16/18 18:33 Resuscitation Status Routine Resuscitation Status: FULL: Full Resuscitation MAR Reviewed: Yes Vital Signs & Weight: Vital Signs (12 hours) Temp Pulse Resp BP BP Pulse Ox 04/20/18 07:28 105 H 16 95 04/20/18 04:32 97.7 F 106 H 20 164/73 H 93 L 04/20/18 00:00 97.6 F 92 18 155/88 H 97 04/19/18 23:21 86 16 94 L Weight Admit Weight 134 lb Weight 134 lb I&O: 04/19/18 04/20/18 04/21/18 06:59 06:59 06:59 Intake Total 250 400 Output Total 465 1727 Balance -215 -7316 Result Diagrams: 04/19/18 09:37 04/20/18 07:07 Additional Labs: Accuchecks 04/20/18 04/19/18 04/19/18 04:32 19:13 16:48 POC Glucose 140 H 151 H 273 H 04/19/18 11:19 POC Glucose 180 H Phys Exam - Physical Examination Constitutional: NAD Respiratory: no wheezing, no rales, no rhonchi Cardiovascular: RRR, no significant murmur Gastrointestinal: soft, positive bowel sounds Neurological: non-focal, moves all 4 limbs Psychiatric: normal affect Deviation from normal: Oriented to person, place Dx/Plan (1) Encephalopathy Code(s): G93.40 - ENCEPHALOPATHY, UNSPECIFIED Status: Resolved Comment: Improved. Possibly related to constipation and urinary retention, persistent UTI. On Cefdinir. Urinary retention resolved with good BM day before yesterday. (2) Pyuria, sterile Code(s): N39.0 - URINARY TRACT INFECTION, SITE NOT SPECIFIED Status: Acute Comment: Urine culture negative and multiple recent abx courses without improvement. Will switch to oral abx to complete current course. (3) Urinary retention Code(s): R33.9 - RETENTION OF URINE, UNSPECIFIED Status: Acute Comment: in and out caths, appreciate Dr. Chao's assistance with this patient, resolved with good BM initially, but then large residual again today. (4) MELISSA (acute kidney injury) Code(s): N17.9 - ACUTE KIDNEY FAILURE, UNSPECIFIED Status: Acute Comment: Improving, uncertain eitiology, Dr. Dudley following (5) Hyperkalemia Code(s): E87.5 - HYPERKALEMIA Status: Resolved (6) Anxiety and depression Code(s): F41.9 - ANXIETY DISORDER, UNSPECIFIED; F32.9 - MAJOR DEPRESSIVE DISORDER, SINGLE EPISODE, UNSPECIFIED Status: Chronic (7) Bipolar disorder Code(s): F31.9 - BIPOLAR DISORDER, UNSPECIFIED Status: Chronic Qualifiers: Active/Remission status: remission status unspecified Qualified Code(s): F31.9 - Bipolar disorder, unspecified (8) Cough Code(s): R05 - COUGH Status: Acute (9) Sacral ulcer Code(s): L98.429 - NON-PRESSURE CHRONIC ULCER OF BACK WITH UNSPECIFIED SEVERITY Status: Acute - Plan cont current plan of care, continue antibiotics ok to d/c back to [facility] if residuals not too high. -: 6 more days of Cefdinir to complete 10 days of antibiotics * . - Discharge Day Encounter end time: 10:05
[2018-04-20] MEDS: Cefdinir 300 MG CAP PO SCH ×2 (09:52→20:28)
[2018-04-20] MEDS: Clopidogrel Bisulfate 75 MG TAB PO SCH (09:53)
[2018-04-20] MEDS: Nortriptyline HCl 25 MG CAP PO SCH ×2 (09:53→20:28)
[2018-04-20] MEDS: Aspirin 325 MG TAB PO SCH (09:53)
[2018-04-20] MEDS: DULoxetine 60 MG CAP PO SCH (09:54)
[2018-04-20] MEDS: guaiFENesin ER 600 MG TAB PO SCH ×2 (09:54→20:28)
[2018-04-20] MEDS: Polyethylene Glycol 3350 17 GM Packet PO SCH (09:55)
[2018-04-20] MEDS: Acetaminophen 325 MG TAB PO PRN ×2 (13:26→20:30)
[2018-04-20] MEDS: Atorvastatin Calcium 10 MG TAB PO SCH (20:28)
[2018-04-20] MEDS: Temazepam 15 MG CAP PO PRN (20:28)
[2018-04-20] MEDS: rOPINIRole HCl 0.25 MG TAB PO SCH (20:28)
[2018-04-20] MEDS: risperiDONE 1 MG TAB PO SCH (20:29)
[2018-04-20] MEDS: Melatonin 3 MG TAB PO SCH (20:29)
[2018-04-21] MEDS: Budesonide 0.5 MG/2 ML NEB INH SCH (05:59)
[2018-04-21] MEDS: DULoxetine 60 MG CAP PO SCH (08:17)
[2018-04-21] MEDS: Nortriptyline HCl 25 MG CAP PO SCH (08:17)
[2018-04-21] MEDS: Aspirin 325 MG TAB PO SCH (08:17)
[2018-04-21] MEDS: Clopidogrel Bisulfate 75 MG TAB PO SCH (08:18)
[2018-04-21] MEDS: Cefdinir 300 MG CAP PO SCH (08:18)
[2018-04-21] MEDS: guaiFENesin ER 600 MG TAB PO SCH (08:18)
[2018-04-21] MEDS: Polyethylene Glycol 3350 17 GM Packet PO SCH (08:21)
--- NOTE | 2018-04-21 08:45 | PDOC.PN ---
- Subjective Encounter Start Date: 04/21/18 Encounter Start Time: 10:10 Subjective: Patient was unable to void yesterday so discharge held. Patient is now -: ready to d/c to a swing bed where bladder scan and I&O caths -: available. No complaints this morning. - Objective Resuscitation Status - Order Detail: 04/16/18 18:33 Resuscitation Status Routine Resuscitation Status: FULL: Full Resuscitation MAR Reviewed: Yes Vital Signs & Weight: Vital Signs (12 hours) Temp Pulse Resp BP Pulse Ox 04/21/18 08:00 98.3 F 66 16 173/84 H 94 L 04/21/18 05:59 102 H 14 95 04/21/18 00:27 86 12 95 04/21/18 00:00 98.5 F 86 20 157/71 H 94 L Weight Admit Weight 134 lb Weight 134 lb I&O: 04/20/18 04/21/18 04/22/18 06:59 06:59 06:59 Intake Total 400 400 Output Total 1727 2551 Balance -1327 -2151 Result Diagrams: 04/19/18 09:37 04/20/18 07:07 Additional Labs: Accuchecks 04/21/18 04/20/18 04/20/18 05:00 19:08 17:14 POC Glucose 144 H 149 H 163 H 04/20/18 11:08 POC Glucose 146 H Phys Exam - Physical Examination Constitutional: NAD HEENT: moist MMs Respiratory: no wheezing, no rales, no rhonchi Cardiovascular: RRR, no significant murmur Gastrointestinal: soft, non-tender, positive bowel sounds Neurological: non-focal, moves all 4 limbs Psychiatric: normal affect Dx/Plan (1) Encephalopathy Code(s): G93.40 - ENCEPHALOPATHY, UNSPECIFIED Status: Resolved Comment: Improved. Possibly related to constipation and urinary retention, persistent UTI. On Cefdinir. Urinary retention resolved with good BM day before yesterday. (2) Pyuria, sterile Code(s): N39.0 - URINARY TRACT INFECTION, SITE NOT SPECIFIED Status: Acute Comment: Urine culture negative and multiple recent abx courses without improvement. Will switch to oral abx to complete current course. (3) Urinary retention Code(s): R33.9 - RETENTION OF URINE, UNSPECIFIED Status: Acute Comment: Unable to void yesterday, had to cath and remove >500cc urine. Dr. Chao recommends bladder scans and I&O caths at SNF/swing bed (4) MELISSA (acute kidney injury) Code(s): N17.9 - ACUTE KIDNEY FAILURE, UNSPECIFIED Status: Acute Comment: Improving, uncertain eitiology, Dr. Dudley following (5) Hyperkalemia Code(s): E87.5 - HYPERKALEMIA Status: Resolved (6) Anxiety and depression Code(s): F41.9 - ANXIETY DISORDER, UNSPECIFIED; F32.9 - MAJOR DEPRESSIVE DISORDER, SINGLE EPISODE, UNSPECIFIED Status: Chronic (7) Bipolar disorder Code(s): F31.9 - BIPOLAR DISORDER, UNSPECIFIED Status: Chronic Qualifiers: Active/Remission status: remission status unspecified Qualified Code(s): F31.9 - Bipolar disorder, unspecified (8) Cough Code(s): R05 - COUGH Status: Acute (9) Sacral ulcer Code(s): L98.429 - NON-PRESSURE CHRONIC ULCER OF BACK WITH UNSPECIFIED SEVERITY Status: Acute - Plan cont current plan of care, PT/OT Discharge to swing bed today. * . - Discharge Day Encounter end time: 10:30
--- NOTE | 2018-04-21 09:13 | PRG ---
DATE OF SERVICE: 04/21/2018 SUBJECTIVE: The patient is sleeping, arousable, she is more lucid today. She is aware that she is in the hospital yesterday. She was quite confused. OBJECTIVE: VITAL SIGNS: Her vital signs are stable. ABDOMEN: Soft, nontender, and nondistended. Voiding diary with nursing staff reviewed. Her PVR again remains dynamic. At times, there is minimal postvoid residual. Most recent catheterization approximately 550 mL. Urine culture repeat negative on April 16, presented with positive urine culture E coli. Currently on Cefdnir , which I agree. Placement is pending. I did discuss with case management, due to the patient's dynamic voiding status, severely deconditioned status, halfway facility rehab. Workup in progress. Patient required facility with ability to do bladder scan , need catheterized if PVR greater than 300 mL. Disposition pending. When placement available, august discharge. Job ID: [id number] MTDD
[2018-04-21 11:13] VITALS: BP 157/77; TEMP 98.7
--- NOTE | 2018-04-22 04:57 | DIS ---
DATE OF ADMISSION: 04/16/2018 DATE OF DISCHARGE: 04/21/2018 PRIMARY CARE PHYSICIAN: Shashi Diggs MD. REASON FOR ADMISSION: Acute encephalopathy. DIAGNOSES AT DISCHARGE: 1. Acute metabolic encephalopathy, resolved. 2. Chronic urinary tract infection versus sterile pyuria. 3. Urinary retention. 4. Acute kidney injury. 5. Hyperkalemia, resolved. 6. Anxiety and depression, chronic. 7. Bipolar disorder. 8. Sacral pressure ulcer. PROCEDURES: 1. CT of the brain showing chronic findings with no intracranial hemorrhage, no acute stroke. 2. Renal ultrasound showing no renal hydronephrosis or perinephric process, however, bilateral renal cysts and a somewhat distended urinary bladder. CONSULTATIONS: 1. Nephrology, Dr. Dudley. 2. Urology, Dr. Dhaval Gibbs. PERTINENT LABORATORY: Creatinine 1.88 on admission, down to 0.73 at discharge. Potassium 5.4 on admission, down to 3.8 to discharge. SUMMARY OF HOSPITAL COURSE: This is a 72-year-old white female with a history of hypertension, weakness, falls, depression, anxiety and COPD, along with some persistent urinary tract infection recently. She presented from [facility] with complaints of mental status changes and weakness. She had been seeing Dr. Dhaval Gibbs for recurring UTIs, however, had not really followed up as scheduled in her clinic for many months and then her primary care doctor had been putting her on antibiotics including Levaquin and she got some Rocephin at some point and Bactrim over the course of the last couple of months for some bacteria in her urine and persistent pyuria. She has been noted to have some mental status changes and was brought into the emergency room. There she did have pyuria. She was started on Zosyn. She was already noted to have a little bit of coughing. In the hospital, the patient's urine came back sterile, possibly a partially treated urinary tract infection versus sterile pyuria. She did have persistent urinary retention with her bladder retaining 300-500 mL of urine after voiding. These were relieved with regular in and out caths after bladder scanning. She had elevated creatinine and potassium on admission. Dr. Dudley was consulted. These all resolved with fluid. It was due to patient's persistent urinary tract infection by history and her urinary retention, Dr. Dhaval Gibbs was consulted. The patient cleared her mental status during her hospitalization. Her antibiotics were eventually switched over to oral antibiotics and she was doing well the day of discharge. DISCHARGE PLAN: She is being discharged to [facility] due to her need for bladder scan, in and out caths. ACTIVITY: As tolerated. DIET: She is on a low-potassium diet. She is to get bladder scans q.6 hours with in and out urinary caths as needed for residual greater than 200 mL. DISCHARGE MEDICATIONS: 1. Aspirin 325 mg daily. 2. Atorvastatin 10 mg at night. 3. Dulcolax 10 mg per rectum as needed for constipation. 4. Cefdinir 300 mg twice a day to complete a full 10-day course of antibiotics. 5. Vitamin D3 2000 units daily. 6. Plavix 75 mg daily. 7. Cranberry 500 mg twice a day. 8. Diltiazem CD 120 mg daily. 9. Cymbalta 60 mg twice a day. 10. Ferrous gluconate 324 mg twice a day. 11. Gretchen 180 mg daily as needed. 12. Gabapentin 300 mg twice a day. 13. Mucinex 600 mg twice a day. 14. Milk of magnesia as needed. 15. Melatonin 6 mg at night. 16. Meloxicam 15 mg daily as needed for pain. 17. Metformin 500 mg twice a day. 18. Multivitamin with iron and minerals one tablet twice a day. 19. Nortriptyline 50 mg twice a day. 20. Protonix 40 mg daily. 21. MiraLAX 9 g daily. 22. Propylene glycol eyedrops two drops in each eye every 8 hours as needed for inflammation. 23. Risperidone 1 mg at night. 24. Requip 0.75 mg each night. 25. Senokot as needed for constipation. 26. Spiriva 2 puffs inhaled daily. 27. Tramadol 50 mg daily as needed for pain. FOLLOWUP: The patient is to follow up with Dr. De La Garza as needed and with Dr. Dhaval Gibbs, on May 17, 2018 at 11:15 a.m. Job ID: [id number]
== END 2018-04-21 13:38 | disposition swing bed (61) | DRG 682 ==
LOC: ERS 14:32 → 2NO 17:18 → T4-A 04-17 19:28
PROVIDERS: ADMIT Family Medicine; ATTEND Family Medicine
DX: N17.9 Acute kidney failure, unspecified (principal); G93.41 Metabolic encephalopathy; N39.0 Urinary tract infection, site not specified; E87.2 Acidosis; Q61.01 Congenital single renal cyst; J44.9 Chronic obstructive pulmonary disease, unspecified; I10 Essential (primary) hypertension; F01.50 Vascular dementia, unspecified severity, without behavioral disturbance, psychotic disturbance, mood disturbance, and anxiety; G25.81 Restless legs syndrome; G89.29 Other chronic pain; E11.51 Type 2 diabetes mellitus with diabetic peripheral angiopathy without gangrene; L89.152 Pressure ulcer of sacral region, stage 2; B96.20 Unspecified Escherichia coli [E. coli] as the cause of diseases classified elsewhere; M19.90 Unspecified osteoarthritis, unspecified site; D50.9 Iron deficiency anemia, unspecified; E87.5 Hyperkalemia; E11.40 Type 2 diabetes mellitus with diabetic neuropathy, unspecified; R33.9 Retention of urine, unspecified; K59.09 Other constipation; E78.5 Hyperlipidemia, unspecified; G47.33 Obstructive sleep apnea (adult) (pediatric); K21.9 Gastro-esophageal reflux disease without esophagitis; F31.9 Bipolar disorder, unspecified; F41.8 Other specified anxiety disorders; Z79.84 Long term (current) use of oral hypoglycemic drugs; Z79.02 Long term (current) use of antithrombotics/antiplatelets; Z79.82 Long term (current) use of aspirin
CPT/HCPCS: 36415; 36416; 51701; 70450; 71045; 76770; 80048; 80053; 80306; 81003; 81015; 82550; 82607; 82746; 84443; 84484; 85014; 85018; 85025; 86780; 87086; 93005; 94640; 94760; 96361; 96365; A4353; J2405; J2543; J7050; J7070; J7620; J7626

== ENCOUNTER 2018-06-02 15:06 | Outpatient (CLI) | payer MEDICARE, BC, MEDICAID ==
[~2018-06-02 15:06] MED LIST: Lidocaine 2% PF 100 mg/5 ml Syringe ONE; Sodium Chloride 0.9% 15 ML NEB ONE
--- NOTE | 2018-06-02 22:59 | HP ---
HISTORY OF PRESENT ILLNESS: Ms. Zaina Forman is a very pleasant 72-year-old, who presents to the Wound Center for evaluation of a sacral pressure ulceration which she states began approximately 6 weeks ago. The patient states she is unsure as to what type of dressing changes she is receiving for the wound. She reports significant pain associated with her wound, for which she takes Tylenol No. 3. The patient states that she spent significant time sitting up. She states that while in bed she is positioned on her side. The patient has no other complaints today. She denies any fever or chills. The patient was referred to the Wound Center by Dr. De La Garza. The patient presently resides at [facility]. PAST MEDICAL HISTORY: 1. Osteoarthritis. 2. Hypertension. 3. Peripheral vascular disease. 4. History of DVT. 5. Anemia, iron deficiency. 6. Osteoporosis. 7. Chronic pain syndrome. 8. Diabetes mellitus. 9. Dementia. 10. Dry eye syndrome. 11. Obstructive sleep apnea. 12. Gastroesophageal reflux disease. 13. COPD. PAST SURGICAL HISTORY: 1. Cholecystectomy. 2. Hysterectomy. 3. Left ankle surgery. 4. Right total hip arthroplasty. 5. Left total hip arthroplasty. 6. Left total knee arthroplasty. 7. ORIF of right proximal femur/revision hip replacement of the right hip arthroplasty. 8. Surgical revascularization of right lower extremity. MEDICATIONS: 1. Requip. 2. MiraLax. 3. Aspirin. 4. Plavix. 5. Protonix. 6. Gabapentin. 7. Lipitor. 8. Risperdal. 9. Vitamin D3. 10. Cymbalta. 11. Dulcolax. 12. Milk of magnesia. 13. Cardizem. 14. Metformin. 15. Propylene glycol. 16. Ferrous gluconate. 17. Gretchen. 18. Spiriva. 19. Multivitamin. 20. Nortriptyline. 21. Meloxicam. 22. Melatonin. ALLERGIES: AMBIEN. SOCIAL HISTORY: Significant for tobacco use of up to 1 pack of cigarettes per day for 50 years. The patient denies any history of EtOH use. FAMILY HISTORY: Significant for diabetes mellitus. The patient's mother was diagnosed with diabetes mellitus. PHYSICAL EXAMINATION: VITAL SIGNS: Temperature 97.6, pulse 94, respirations 15, and blood pressure 142/70. GENERAL: A 72-year-old female, lying on stretcher in examination room, in [id number] distress. HEENT: Normocephalic and atraumatic. NECK: No nuchal rigidity. CHEST: Clear to auscultation. CV: Regular rate and rhythm. ABDOMEN: Soft. EXTREMITIES: No clubbing or cyanosis. BACK: Sacral pressure ulceration is present, which measures approximately 2.4 x 3.8 cm. Granulation tissue is present within the wound margins. Necrotic and nonviable tissue present within the wound margins was debrided with an excisional full-thickness debridement with the use of scissors and a curette. No purulent drainage is associated with the wound. Erythema of the skin surrounding the wound is present. No maceration of the skin of the periwound is noted. The erythema of the skin surrounding the wound appears to be secondary to an eczematoid rash in conjunction with a cutaneous candidal infection. ASSESSMENT AND PLAN: 1. Sacral pressure ulceration as described above. Dressing changes of Medihoney gauze and Allevyn are to be performed on a daily basis after cleansing and irrigation. Orders will also be transmitted to [facility] for the application of Lotrisone cream or ointment to the periwound at the time of dressing changes. I will see Ms. Forman again in 3 weeks. The patient understands and is in agreement with the preceding treatment plan. No antibiotics will be prescribed today based upon the appearance of the wound. 2. Diabetes mellitus. Accu-Cheks will be obtained at the time of the patient's clinic visits. The patient has been told that for optimal wound healing, her blood glucoses should remain below 150. 3. Osteoarthritis. 4. Hypertension. 5. Peripheral vascular disease. 6. History of deep venous thrombosis. 7. Anemia, iron deficiency. 8. Osteoporosis. 9. Chronic pain syndrome. 10. Dementia. 11. Dry eye syndrome. 12. Obstructive sleep apnea. 13. Gastroesophageal reflux disease. 14. Chronic obstructive pulmonary disease. Job ID: [id number]
== END 2018-06-02 15:07 | disposition home or self-care (01) ==
LOC: WCC 15:06
PROVIDERS: ATTEND Family Medicine
DX: E11.622 Type 2 diabetes mellitus with other skin ulcer (principal); L89.159 Pressure ulcer of sacral region, unspecified stage; M19.90 Unspecified osteoarthritis, unspecified site; I10 Essential (primary) hypertension; E11.51 Type 2 diabetes mellitus with diabetic peripheral angiopathy without gangrene; Z86.718 Personal history of other venous thrombosis and embolism; D50.9 Iron deficiency anemia, unspecified; M81.0 Age-related osteoporosis without current pathological fracture; G89.4 Chronic pain syndrome; F03.90 Unspecified dementia, unspecified severity, without behavioral disturbance, psychotic disturbance, mood disturbance, and anxiety; H04.129 Dry eye syndrome of unspecified lacrimal gland; G47.33 Obstructive sleep apnea (adult) (pediatric); K21.9 Gastro-esophageal reflux disease without esophagitis; J44.9 Chronic obstructive pulmonary disease, unspecified
CPT/HCPCS: 11042; 97139; G0463; 99203; A4218; J2001

== ENCOUNTER 2018-06-27 10:33 | Outpatient (CLI) | payer MEDICARE, BC, MEDICAID ==
--- NOTE | 2018-06-27 11:46 | PRG ---
DATE OF SERVICE: 06/27/2018 HISTORY: Ms. Zaina Forman is a very pleasant 72-year-old, who presents to the Wound Center for evaluation of a sacral pressure ulceration. At the time of the patient's initial presentation to the Wound Center, Ms. Forman stated that the wound had begun approximately 6 weeks previously. The patient continues to reside at [facility]. The patient was placed on dressing changes of Medihoney gauze and Allevyn. After being seen in the Wound Center, the patient states that she has been receiving the preceding dressing changes on a daily basis at [facility] as prescribed. OBJECTIVE: VITAL SIGNS: Temperature 97.7, pulse 87, respirations 16, and blood pressure 188/83. BACK: The sacral pressure ulceration measures approximately 1.5 x 1.5 cm. At the time of the patient's last visit, the dimensions were approximately 2.4 x 3.8 cm. Granulation tissue was present within the wound margins. Nonviable tissue present within the wound margins was debrided with an excisional full-thickness debridement. No purulent drainage is associated with the wound. No cellulitis of the presacral region is appreciated. No maceration of the skin of the periwound is noted. ASSESSMENT AND PLAN: 1. Sacral pressure ulceration as described above. Dressing changes of Medihoney gauze and Allevyn will be continued on a daily basis after cleansing and irrigation. Orders will also be transmitted to [facility] for the application of Lotrisone cream or ointment to the periwound at the time of dressing changes in addition to placement of the patient on an air-fluidized bed or low air loss mattress. I will see Ms. Forman again in 4 weeks. 2. Diabetes mellitus. Accu-Cheks will be obtained at the time of the patient's clinic visits. The patient has been reminded that for optimal wound healing, her blood glucoses should remain below 150. 3. Osteoarthritis. 4. Hypertension. 5. Peripheral vascular disease. 6. History of deep venous thrombosis. 7. Anemia, iron deficiency. 8. Osteoporosis. 9. Chronic pain syndrome. 10. Dementia. 11. Dry eye syndrome. 12. Obstructive sleep apnea. 13. Gastroesophageal reflux disease. 14. Chronic obstructive pulmonary disease. Job ID: [id number]
[2018-06-27] MEDS ORDERED: Sodium Chloride 0.9% 15 ML NEB ONE (18:00)
== END 2018-06-27 10:34 | disposition home or self-care (01) ==
LOC: WCC 10:33
PROVIDERS: ATTEND Family Medicine
DX: L89.159 Pressure ulcer of sacral region, unspecified stage (principal); E11.9 Type 2 diabetes mellitus without complications; M19.90 Unspecified osteoarthritis, unspecified site; I10 Essential (primary) hypertension; I73.9 Peripheral vascular disease, unspecified; D50.9 Iron deficiency anemia, unspecified; M81.0 Age-related osteoporosis without current pathological fracture; G89.29 Other chronic pain; F03.90 Unspecified dementia, unspecified severity, without behavioral disturbance, psychotic disturbance, mood disturbance, and anxiety; H04.129 Dry eye syndrome of unspecified lacrimal gland; G47.33 Obstructive sleep apnea (adult) (pediatric); K21.9 Gastro-esophageal reflux disease without esophagitis; J44.9 Chronic obstructive pulmonary disease, unspecified
CPT/HCPCS: A4218

== ENCOUNTER 2018-07-25 13:09 | Outpatient (CLI) | payer MEDICARE, BC, MEDICAID ==
--- NOTE | 2018-07-25 14:24 | PRG ---
DATE OF SERVICE: 07/25/2018 SUBJECTIVE HISTORY: Ms. Zaina Forman is a very pleasant 72-year-old, who presents to the Wound Center for evaluation of a sacral pressure ulceration. At the time of the patient's initial presentation to the Wound Center, Ms. Forman stated that the wound had begun approximately 6 weeks previously, the patient continues to reside at [facility]. The patient was placed on dressing changes of Medihoney gauze and Allevyn after being seen in the Wound Center. Again, the patient states that she has been receiving the preceding dressing changes on a daily basis at [facility] as prescribed. OBJECTIVE: VITAL SIGNS: Temperature 98.7, pulse 81, blood pressure 137/65. BACK: The sacral pressure ulceration measures approximately 1.4 x 2.0 cm. Granulation tissue is present within the wound margins. Nonviable tissue present within the wound margins was debrided with an excisional full-thickness debridement. No purulent drainage is associated with the wound. No cellulitis of the presacral region is appreciated. No maceration of the skin of the periwound is noted. ASSESSMENT AND PLAN: 1. Sacral pressure ulceration as described above. Dressing changes of Medihoney gauze and Allevyn will be continued on a daily basis after cleansing and irrigation. Orders will be transmitted to [facility] or the patient to be placed on an air-fluidized bed or low air loss mattress. I will see Ms. Forman again in 4 weeks. 2. Diabetes mellitus Accu-Cheks will be obtained at the time of the patient's clinic visits. The patient has been reminded that for optimal wound healing, her blood glucoses should remain below 150. 3. Osteoarthritis. 4. Hypertension. 5. Peripheral vascular disease. 6. History of deep venous thrombosis. 7. Anemia, iron deficiency. 8. Osteoporosis. 9. Chronic pain syndrome. 10. Dementia. 11. Dry eye syndrome. 12. Obstructive sleep apnea. 13. Gastroesophageal reflux disease. 14. Chronic obstructive pulmonary disease. Job ID: [id number]
[2018-07-25] MEDS ORDERED: Sodium Chloride 0.9% 15 ML NEB ONE (14:52)
== END 2018-07-25 13:10 | disposition home or self-care (01) ==
LOC: WCC 13:09
PROVIDERS: ATTEND Family Medicine
DX: E11.622 Type 2 diabetes mellitus with other skin ulcer (principal); L89.159 Pressure ulcer of sacral region, unspecified stage; M19.90 Unspecified osteoarthritis, unspecified site; E11.51 Type 2 diabetes mellitus with diabetic peripheral angiopathy without gangrene; D50.9 Iron deficiency anemia, unspecified; M81.0 Age-related osteoporosis without current pathological fracture; G89.4 Chronic pain syndrome; A52.17 General paresis; H04.129 Dry eye syndrome of unspecified lacrimal gland; G47.33 Obstructive sleep apnea (adult) (pediatric); K21.9 Gastro-esophageal reflux disease without esophagitis; J44.9 Chronic obstructive pulmonary disease, unspecified; I10 Essential (primary) hypertension; Z86.718 Personal history of other venous thrombosis and embolism

== ENCOUNTER 2018-08-22 14:40 | Outpatient (CLI) | payer MEDICARE, BC, MEDICAID ==
[2018-08-22] MEDS ORDERED: Lidocaine 2% PF 100 mg/5 ml Syringe ONE (15:00)
[2018-08-22] MEDS ORDERED: Sodium Chloride 0.9% 15 ML NEB ONE (15:00)
--- NOTE | 2018-08-22 15:42 | PRG ---
DATE OF SERVICE: 08/22/2018 HISTORY: Ms. Zaina Forman is a very pleasant 72-year-old, who presents to the Wound Center for evaluation of a sacral pressure ulceration. At the time of the patient's initial presentation to the Wound Center, Ms. Forman stated that the wound had begun approximately 6 weeks previously. The patient continues to reside at [facility]. The patient was placed on dressing changes of Medihoney gauze and Allevyn after being seen in the Wound Center. Once again, the patient states that she has been receiving the preceding dressing changes on a daily basis at [facility] as prescribed. PHYSICAL EXAMINATION: VITAL SIGNS: Temperature 98.2, pulse 82, respirations 12, blood pressure 159/71. Accu-Chek 151. BACK: The sacral ulceration measures approximately 1.2 x 1.2 cm. The dimensions of the wound at the time of the patient's last visit were approximately 1.4 x 2.0 cm. A tunnel associated with the wound is approximately 1.5 cm in length. Granulation tissue is present within the wound margins. Nonviable tissue present within the wound margins was debrided with an excisional full-thickness debridement with the use of a curette. No purulent drainage is associated with the wound. No cellulitis of the presacral region is appreciated. No maceration of the skin of the periwound is noted. ASSESSMENT AND PLAN: 1. Sacral pressure ulceration as described above. Dressing changes of Medihoney gauze and Allevyn will be continued on a daily basis after cleansing and irrigation. Orders were previously transmitted to [facility] for the patient to be placed on an air-fluidized bed or low air loss mattress. I will see Ms. Forman again in 4 weeks. 2. Diabetes mellitus. The patient's Accu-Chek in clinic today is 151. The patient has been reminded that for optimal wound healing, her blood glucoses should remain below 150. 3. Osteoarthritis. 4. Hypertension. 5. Peripheral vascular disease. 6. History of deep venous thrombosis. 7. Anemia, iron deficiency. 8. Osteoporosis. 9. Chronic pain syndrome. 10. Dementia. 11. Dry eye syndrome. 12. Obstructive sleep apnea. 13. Gastroesophageal reflux disease. 14. Chronic obstructive pulmonary disease. Job ID: [id number]
== END 2018-08-22 14:41 | disposition home or self-care (01) ==
LOC: WCC 14:40
PROVIDERS: ATTEND Family Medicine
DX: L89.159 Pressure ulcer of sacral region, unspecified stage (principal); E11.9 Type 2 diabetes mellitus without complications; M19.90 Unspecified osteoarthritis, unspecified site; I10 Essential (primary) hypertension; I73.9 Peripheral vascular disease, unspecified; D50.9 Iron deficiency anemia, unspecified; G89.4 Chronic pain syndrome; M81.0 Age-related osteoporosis without current pathological fracture; F03.90 Unspecified dementia, unspecified severity, without behavioral disturbance, psychotic disturbance, mood disturbance, and anxiety; G47.33 Obstructive sleep apnea (adult) (pediatric); K21.9 Gastro-esophageal reflux disease without esophagitis; J44.9 Chronic obstructive pulmonary disease, unspecified; H04.129 Dry eye syndrome of unspecified lacrimal gland; Z86.718 Personal history of other venous thrombosis and embolism
CPT/HCPCS: 11042; 36416; A4218; J2001

== ENCOUNTER 2018-09-19 10:40 | Outpatient (CLI) | payer MEDICARE, BC, MEDICAID ==
[~2018-09-19 10:40] MED LIST changes: -Lidocaine 2% PF 100 mg/5 ml Syringe ONE
--- NOTE | 2018-09-19 11:21 | PRG ---
DATE OF SERVICE: 09/19/2018 HISTORY: Ms. Zaina Forman is a very pleasant 72-year-old, who presents to the Wound Center for evaluation of a sacral pressure ulceration. At the time of the patient's initial presentation to the Wound Center, Ms. Forman stated that the wound had begun approximately 6 weeks previously. The patient continues to reside at [facility]. The patient was placed on dressing changes of Medihoney gauze and Allevyn after being seen in the Wound Center. The patient continues to receive the preceding dressing changes at [facility]. PHYSICAL EXAMINATION: VITAL SIGNS: Temperature 98.2, pulse 90, respirations 17, and blood pressure 145/66. Accu-Chek 112. BACK: A sacral ulceration is present, which measures approximately 1.0 x 1.8 cm. The dimensions of the wound at the time of the patient's last visit were approximately 1.2 x 1.2 cm. A tunnel is associated with the wound and measures approximately 1 cm in length. The length of the tunnel at the time of the patient's last visit was approximately 1.5 cm. Granulation tissue is present within the wound margins. Nonviable tissue present within the wound margins was debrided with an excisional full-thickness debridement with the use of a curette. No purulent drainage is associated with the wound. No cellulitis of the presacral region is appreciated. No maceration of the skin of the periwound is noted. ASSESSMENT AND PLAN: 1. Sacral pressure ulceration as described above. Dressing changes of Medihoney will be discontinued. Dressing changes of Promogran will be initiated today. These dressing changes are to be performed on a daily basis after cleansing and irrigation. Mepilex border, Optifoam, or Allevyn will be utilized as a secondary dressing. Orders were previously transmitted to [facility] for the patient to be placed on an air-fluidized bed or low air loss mattress. The patient has been encouraged to utilize the cushion provided to her when she is sitting in her wheelchair. I will see Ms. Forman again in 2 weeks. 2. Diabetes mellitus. The patient's Accu-Chek in clinic today is 112. The patient has been reminded that for optimal wound healing, her blood glucoses should remain below 150. 3. Osteoarthritis. 4. Hypertension. 5. Peripheral vascular disease. 6. History of deep venous thrombosis. 7. Anemia, iron deficiency. 8. Osteoporosis. 9. Chronic pain syndrome. 10. Dementia. 11. Dry eye syndrome. 12. Obstructive sleep apnea. 13. Gastroesophageal reflux disease. 14. Chronic obstructive pulmonary disease. Job ID: [id number]
== END 2018-09-19 10:41 | disposition home or self-care (01) ==
LOC: WCC 10:40
PROVIDERS: ATTEND Family Medicine
DX: L89.159 Pressure ulcer of sacral region, unspecified stage (principal); E11.622 Type 2 diabetes mellitus with other skin ulcer; L98.419 Non-pressure chronic ulcer of buttock with unspecified severity; I10 Essential (primary) hypertension; I73.9 Peripheral vascular disease, unspecified; M19.91 Primary osteoarthritis, unspecified site; D50.9 Iron deficiency anemia, unspecified; M81.0 Age-related osteoporosis without current pathological fracture; G89.4 Chronic pain syndrome; F03.90 Unspecified dementia, unspecified severity, without behavioral disturbance, psychotic disturbance, mood disturbance, and anxiety; H04.129 Dry eye syndrome of unspecified lacrimal gland; G47.33 Obstructive sleep apnea (adult) (pediatric); K21.9 Gastro-esophageal reflux disease without esophagitis; J44.9 Chronic obstructive pulmonary disease, unspecified; Z86.718 Personal history of other venous thrombosis and embolism
CPT/HCPCS: A4218

== ENCOUNTER 2018-10-03 14:50 | Outpatient (CLI) | payer MEDICARE, BC, MEDICAID ==
--- NOTE | 2018-10-03 09:53 | PRG ---
DATE OF SERVICE: 10/03/2018 HISTORY: Ms. Zaina Forman is a very pleasant 73-year-old, who presents to the Wound Center for evaluation of a sacral pressure ulceration. At the time of the patient's initial presentation to the Wound Center, Ms. Forman stated that the wound had begun approximately 6 weeks previously. The patient continues to reside at [facility]. The patient was placed on dressing changes of Medihoney gauze and Allevyn after being seen in the Wound Center. At the time of the patient's last visit, dressing changes of Promogran were initiated. Orders were also transmitted to [facility] for dressing changes of Promogran on a daily basis after cleansing and irrigation. Allevyn is being utilized as a secondary dressing. The patient has no complaints today. She denies any fever or chills. PHYSICAL EXAMINATION: VITAL SIGNS: Temperature 98.3, pulse 91, respirations 18, blood pressure 153/69. Accu-Chek 185. BACK: A sacral ulceration is present, which measures approximately 1.0 x 0.5 cm. Granulation tissue is present within the wound margins. Nonviable tissue present within the wound margins was debrided with an excisional full-thickness debridement. No purulent drainage is associated with the wound. No erythema of the skin surrounding the wound is present. No maceration of the skin of the periwound is noted. ASSESSMENT AND PLAN: 1. Sacral pressure ulceration as described above. Dressing changes of Promogran and Allevyn will be continued on a daily basis after cleansing and irrigation at [facility]. Orders were previously transmitted to [facility] for the patient to be placed on an air-fluidized bed or low air loss mattress. The patient states that she tries to offload the sacral pressure ulceration with the use of pillows when she is in her bed. I will see Ms. Forman again in 2 weeks. The patient states that she is unable to use a cushion while sitting in her wheelchair. 2. Diabetes mellitus. The patient's Accu-Chek in clinic today is 185. The patient has been reminded that for optimal wound healing, her blood glucoses should remain below 150. 3. Osteoarthritis. 4. Hypertension. 5. Peripheral vascular disease. 6. History of deep venous thrombosis. 7. Anemia, iron deficiency. 8. Osteoporosis. 9. Chronic pain syndrome. 10. Dementia. 11. Dry eye syndrome. 12. Obstructive sleep apnea. 13. Gastroesophageal reflux disease. 14. Chronic obstructive pulmonary disease. Job ID: [id number]
[2018-10-03] MEDS ORDERED: Sodium Chloride 0.9% 15 ML NEB ONE (18:00)
== END 2018-10-03 14:51 | disposition home or self-care (01) ==
LOC: WCC 14:50
PROVIDERS: ATTEND Family Medicine
DX: E11.622 Type 2 diabetes mellitus with other skin ulcer (principal); L89.159 Pressure ulcer of sacral region, unspecified stage; M19.90 Unspecified osteoarthritis, unspecified site; I10 Essential (primary) hypertension; E11.51 Type 2 diabetes mellitus with diabetic peripheral angiopathy without gangrene; Z86.718 Personal history of other venous thrombosis and embolism; D50.9 Iron deficiency anemia, unspecified; M81.0 Age-related osteoporosis without current pathological fracture; G89.4 Chronic pain syndrome; F03.90 Unspecified dementia, unspecified severity, without behavioral disturbance, psychotic disturbance, mood disturbance, and anxiety; H04.129 Dry eye syndrome of unspecified lacrimal gland; G47.33 Obstructive sleep apnea (adult) (pediatric); K21.9 Gastro-esophageal reflux disease without esophagitis; J44.9 Chronic obstructive pulmonary disease, unspecified
CPT/HCPCS: 36416; A4218

== ENCOUNTER 2018-10-17 09:22 | Outpatient (CLI) | payer MEDICARE, BC, MEDICAID ==
--- NOTE | 2018-10-17 10:37 | PRG ---
DATE OF SERVICE: 10/17/2018 HISTORY: Ms. Zaina Forman is a very pleasant 73-year-old, who presents to the wound center for evaluation of a sacral pressure ulceration. At the time of the patient's initial presentation to the wound center, Ms. Forman stated that the wound had begun approximately 6 weeks previously. The patient continues to reside at [facility]. The patient was placed on dressing changes of Medihoney gauze and Allevyn after being seen in the wound center. More recently, the patient has been receiving dressing changes of Promogran and Allevyn. Orders were also transmitted to [facility] for dressing changes of Promogran on a daily basis after cleansing and irrigation. The patient has no complaints today. She denies any fever or chills. PHYSICAL EXAMINATION: VITAL SIGNS: Temperature 97.6, pulse 80, respirations 17, and blood pressure 143/62. Accu-Chek 112. BACK: A sacral ulceration is present, which measures approximately 0.6 x 0.6 cm. Granulation tissue is present within the wound margins. Nonviable tissue present within the wound margins was debrided with an excisional full-thickness debridement. No purulent drainage is associated with the wound. No erythema of the skin surrounding the wound is present. No maceration of the skin of the periwound is noted. ASSESSMENT AND PLAN: 1. Sacral pressure ulceration as described above. Dressing changes of Promogran and Allevyn will be continued on a daily basis after cleansing and irrigation at [facility]. Orders were previously transmitted to [facility] for the patient to be placed on an air-fluidized bed or low air loss mattress. The patient previously stated that she tries to offload the sacral pressure ulceration with the use of pillows when she is in her bed. The patient stated that she was able to use a cushion while sitting in her wheelchair. I will see Ms. Forman again in 2 weeks. 2. Diabetes mellitus. The patient's Accu-Chek in clinic today is 112. The patient has been reminded that for optimal wound healing her blood glucoses should remain below 150. 3. Osteoarthritis. 4. Hypertension. 5. Peripheral vascular disease. 6. History of deep venous thrombosis. 7. Anemia, iron deficiency. 8. Osteoporosis. 9. Chronic pain syndrome. 10. Dementia. 11. Dry eye syndrome. 12. Obstructive sleep apnea. 13. Gastroesophageal reflux disease. 14. Chronic obstructive pulmonary disease. Job ID: [id number]
[2018-10-17] MEDS ORDERED: Sodium Chloride 0.9% 15 ML NEB ONE (15:00)
== END 2018-10-17 09:23 | disposition home or self-care (01) ==
LOC: WCC 09:22
PROVIDERS: ATTEND Family Medicine
DX: E11.622 Type 2 diabetes mellitus with other skin ulcer (principal); L89.159 Pressure ulcer of sacral region, unspecified stage; M19.90 Unspecified osteoarthritis, unspecified site; I10 Essential (primary) hypertension; E11.51 Type 2 diabetes mellitus with diabetic peripheral angiopathy without gangrene; D50.9 Iron deficiency anemia, unspecified; M81.0 Age-related osteoporosis without current pathological fracture; G89.4 Chronic pain syndrome; F03.90 Unspecified dementia, unspecified severity, without behavioral disturbance, psychotic disturbance, mood disturbance, and anxiety; H04.129 Dry eye syndrome of unspecified lacrimal gland; G47.33 Obstructive sleep apnea (adult) (pediatric); K21.9 Gastro-esophageal reflux disease without esophagitis; J44.9 Chronic obstructive pulmonary disease, unspecified; Z86.718 Personal history of other venous thrombosis and embolism
CPT/HCPCS: A4218

== ENCOUNTER 2018-11-06 18:36 | Inpatient (IN) | payer MEDICARE, BC, MEDICAID ==
[~2018-11-06 18:36] MED LIST changes: +Ondansetron ODT 4 MG TAB SL PRN; -Sodium Chloride 0.9% 15 ML NEB ONE
[2018-11-06 19:26] LABS: Bilirubin Small (Negative); Blood, Urine Moderate (Negative); Glucose, Urine (Dipstick) Negative (Negative); Leukocyte Large (Negative); Nitrite Positive (Negative); Protein, Urine (Dipstick) 100 mg/dL (Neg-Trace); Urobilinogen 0.2 mg/dL (Less than 2)
[2018-11-06 19:29] LABS: Clarity Hazy (Clear)
[2018-11-06 19:30] LABS: #Eosinphils 0.1 thou/uL (0.0-0.7); #Lymphocytes 1.1 thou/uL (1.20-3.40); #Monocytes 0.6 thou/uL (0.11-0.59); #Neutrophils 7.6 thou/uL (1.40-6.50); %Basophils 0.4 % (0.0-1.0); %Eosinophils 1.5 % (0.0-10.0); %Lymphocytes 11.4 % (21.0-51.0); %Neutrophils 80.8 % (42.0-75.0); Hemoglobin 11.5 g/dL (12.0-16.0); Mean Corpuscular HGB CONC 33.1 g/dL (32.0-36.0); Mean Corpuscular Hemoglobin 32.1 pg (27.0-31.0); Mean Platelet Volume 7.7 fL (7.4-10.4); Platelet Count 247 thou/uL (130-400); RBC Distribution Width 13.2 % (11.5-14.5); Red Blood Cell (RBC) Count 3.57 mill/uL (4.20-5.40); White Blood Cell (WBC) Count 9.4 thou/uL (4.8-10.8)
[2018-11-06 19:32] LABS: Bacteria/HPF 4+ HPF (None Seen); Squamous Epithelial 0-3 HPF (0-3); WBC/HPF Greater Than 50 HPF (0-3)
[2018-11-06 19:43] LABS: ALT (SGPT) 10 U/L (8-55); AST (SGOT) 22 U/L (5-34); Albumin 3.6 g/dL (3.4-4.8); Alkaline Phosphatase 125 U/L (40-150); Anion Gap 14 mmol/L (10-20); BUN (Urea Nitrogen) 27 mg/dL (9.8-20.1); Bilirubin, Total 0.2 mg/dL (0.2-1.2); Calc. Creatinine Clearance 0 mL/min (70-130); Calcium 10.1 mg/dL (7.8-10.44); Carbon Dioxide 21 mmol/L (23-31); Chloride 105 mmol/L (98-107); Estimated GFR-MDRD 49; Globulin 2.7 g/dL (2.4-3.5); Glucose 112 mg/dL (83-110); Potassium 5.2 mmol/L (3.5-5.1); Protein, Total 6.3 g/dL (6.0-8.3); Sodium 135 mmol/L (136-145)
--- NOTE | 2018-11-06 19:56 | CT ---
BRAIN CT WITHOUT IV CONTRAST: History: Altered Mental status. Nausea, vomiting. Comparison: 04-16-18 FINDINGS: Stable appearing atrophy and chronic white matter ischemic change. Stable calcified left frontal meni ngioma. No intra or extraaxial hemorrhage. No mass or midline shift. Sinuses and mastoids are clear o f acute process. IMPRESSION: No significant acute intracranial process. Stable findings from prior study. POS: [facility]
[2018-11-06] MEDS ORDERED: Piperacillin/Tazobactam 3.375 GM VIAL ONE (19:59)
[2018-11-06] MEDS ORDERED: Ondansetron PF 4 MG/2 ML Vial ONE (19:59)
--- NOTE | 2018-11-06 20:00 | RAD ---
EXAM: CHEST ONE VIEW: History: Dementia, altered mental status. Comparison: 04-16-18 FINDINGS: Rotation to the left. Minimal cardiomegaly. Increased linear and interstitial markings noted bilatera lly which appear little changed from the prior study. There is a somewhat poorly defined nodular dens ity overlying the left mid chest region, overlying the posterior 6th rib. This could potentially repr esent a small focus of nodular infiltrate or a small pulmonary nodule. Nonemergent follow up CT scan might be considered for further evaluation. There are some scattered calcific densities overlying the apices of both lungs, stable. No significant pleural effusion. IMPRESSION: 1. Stable increased linear and interstitial markings bilaterally with minimal cardiomegaly. 2. Questionable nodular density over the left midlung zone. 3. Other stable findings. Code Lung Nodule POS: [id number]
[2018-11-06] MEDS ORDERED: Acetaminophen 325 MG TAB PO PRN (22:56)
[2018-11-06 22:58] LABS: Troponin I Less than 0.010 ng/mL (< 0.028)
[2018-11-06] MEDS ORDERED: HumaLOG 300 UNITS/3 ML VIAL SC PRN (23:32)
[2018-11-06] MEDS ORDERED: Dextrose 50% Abboject 50 ML SYRINGE SLOW IVP PRN (23:32)
[2018-11-06] MEDS ORDERED: Dextrose 5% in Water 1,000 ML IV PRN (23:32)
[2018-11-06 23:41] VITALS: BMI 23.6
--- NOTE | 2018-11-07 00:21 | HP ---
PRIMARY CARE PHYSICIAN: Carmen De La Garza DO CODE STATUS: Full code. TIME OF EVALUATION: 08:10 p.m. CHIEF COMPLAINT: Change in mental status. HISTORY OF PRESENT ILLNESS: This is a 73-year-old female patient, [facility], came to the hospital after being found to have change in mental status for the past 24 to 48 hours. Symptoms started insidiously and has been probably getting worse or severe. The patient has had a previous history of UTI and the presentation has been with the same symptoms. REVIEW OF SYSTEMS: The patient has dementia and this is from the record. 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 PAST SURGICAL HISTORY: Bilateral hip, left knee, cholecystectomy, hysterectomy, iliac stents. PSYCHIATRIC HISTORY: Anxiety and depression. FAMILY HISTORY:Reviewed and non contributory for current presentation. SOCIAL HISTORY: Lives in long-term care facility in [facility]. The patient denies alcohol use. Denies drug use. KNOWN ALLERGIES: Ambien and zolpidem. REPORTED MEDICATIONS: 1. Melatonin. 2. Nortriptyline. 3. Tramadol. 4. Cardizem CD. 5. Tylenol 3. 6. Vitamin C. 7. Metformin. 8. Cymbalta. 9. MiraLAX. 10. Ecotrin. 11. Meloxicam. 12. Protonix. 13. Ferrous gluconate. 14. Spiriva with hand inhaler. 15. Vitamin D3. 16. Risperidone. 17. Gretchen. 18. Gabapentin. PHYSICAL EXAMINATION: VITAL SIGNS: On presentation, blood pressure 144/94 with heart rate 83, respiratory rate was 20, temperature 98.5, pain was 0/10, oxygen saturation was 92% on room air. GENERAL APPEARANCE: The patient is alert, confused, not in acute distress. HEENT: Eyes, normal conjunctivae. Dry oral mucosa. Anicteric. No JVD. RESPIRATORY: Bilateral air entry. No rales. No wheezes. Symmetric expansion. CARDIOVASCULAR: Normal rate and regular rhythm. No murmurs. No gallop. No edema. ABDOMEN: Soft. Normal bowel sounds. MUSCULOSKELETAL: Baseline range of motion and strength. SKIN: Warm, intact. No pallor. No rash. No redness. Capillary refill seems to be intact. NEUROLOGIC: No evidence of any new focal weakness. Cranial nerves seems to be intact. PSYCHIATRIC: The patient is in good mood. No anxiety. Optimal judgment. DIAGNOSTIC DATA: EKG was reviewed. The patient has normal sinus rhythm with a rate of 82, GA 166, QRS duration 94, QT corrected 432. Chest x-ray shows stable increase in linear interstitial markings bilaterally with minimal cardiomegaly, questionable nodular density over the left mid lung zone, otherwise stable findings. Brain CT, no significant acute intracranial process. Stable findings from prior study. LABORATORY DATA: Labs were reviewed. The patient has white count 9.4, hemoglobin 9.5, MCV 97, platelet count 247. Chemistry; sodium 135, potassium 5.2, chloride 105, carbon dioxide 21, anion gap 14, BUN 27, creatinine 1.0, GFR 49, glucose 112, lactic acid 1.2, calcium 10.1. LFTs were negative. Troponin was negative x2. Albumin 3.6. Urine was done, it was positive for nitrites and leukocyte esterase. White count greater than 15. ASSESSMENT AND PLAN: The patient will be placed in the hospital with following medical problems: 1. Urinary tract infection. The patient has a positive UA. The patient has been started on antibiotics. We will continue for now. Follow sensitivity. Adjust treatment as per sensitivity. 2. Normocytic anemia. This is chronic. Hemoglobin is stable. We will monitor. No need for any acute intervention at this point. 3. Hyponatremia, sodium 135 is minimal, no need for any acute intervention at this point. 4. Hyperkalemia, potassium 5.2. This is minimal, we will monitor and treat accordingly. No need for any acute intervention at this point. 5. Diabetes type 2. Blood sugar is in control. We will place the patient on sliding scale for optimal control. Reconcile home medications. Job ID: [id number] [facility]
[2018-11-07] MEDS: Sodium Chloride 0.9% 1,000 ML IV SCH ×2 (01:24→13:16)
[2018-11-07 01:37] LABS: Troponin I 0.027 ng/mL (< 0.028)
[2018-11-07] MEDS ORDERED: Ondansetron ODT 4 MG TAB SL PRN (02:10)
[2018-11-07] MEDS ORDERED: Ondansetron PF 4 MG/2 ML Vial IVP PRN ×2 (02:10→12:40)
[2018-11-07] MEDS: Piperacillin/Tazobactam 3.375 GM in Sodium Chloride 0.9% 100 ML IVPB SCH ×3 (03:52→20:38)
[2018-11-07] MEDS ORDERED: Sodium Chloride 0.65% Nasal 44 ML BOT EA NARE PRN (12:40)
[2018-11-07] MEDS ORDERED: Senokot S 8.6-50 MG TAB PO PRN (12:40)
[2018-11-07] MEDS ORDERED: Artificial Tears 18 DROP/0.9 ML EA EYE PRN (12:40)
[2018-11-07] MEDS ORDERED: hydrALAZINE 20 MG/ML VIAL SLOW IVP PRN (12:40)
[2018-11-07] MEDS ORDERED: Cepastat Lozenges 1 LOZ PO PRN (12:40)
[2018-11-07] MEDS ORDERED: Bisacodyl 5 MG TAB PO PRN (12:40)
[2018-11-07] MEDS ORDERED: Ondansetron ODT 4 MG TAB PO PRN (12:40)
[2018-11-07] MEDS ORDERED: Loratadine 10 MG TAB PO PRN (12:40)
[2018-11-07] MEDS ORDERED: Temazepam 15 MG CAP PO PRN (12:40)
[2018-11-07] MEDS ORDERED: Diabetic Tussin 200 MG/10 ML UDCUP PO PRN (12:40)
[2018-11-07] MEDS ORDERED: Loperamide HCl 2 MG CAP PO PRN (12:40)
[2018-11-07] MEDS ORDERED: Polyethylene Glycol OPTH DROP 15 ML BOT EA EYE PRN (12:41)
[2018-11-07] MEDS ORDERED: Albuterol Sulfate 1.25 MG/3 ML NEB NEB PRN (12:41)
[2018-11-07] MEDS ORDERED: Mag-Al 1200 mg/1200 mg/30 ML UDCUP PO PRN (12:41)
[2018-11-07] MEDS ORDERED: Acetaminophen/Codeine 30-300mg Tablet PO PRN (12:41)
[2018-11-07] MEDS ORDERED: Senokot 8.6 MG TAB PO PRN (12:41)
[2018-11-07] MEDS ORDERED: Meloxicam 15 MG TAB PO PRN (12:41)
[2018-11-07] MEDS ORDERED: guaiFENesin ER 600 MG TAB PO PRN (12:41)
[2018-11-07] MEDS ORDERED: Artificial Tear Sol 15 ML BOT EA EYE PRN (12:41)
[2018-11-07] MEDS ORDERED: Milk Of Magnesia 30 ML UDCUP PO PRN (12:41)
[2018-11-07] MEDS ORDERED: Bisacodyl 10 MG SUPP PR PRN (12:41)
[2018-11-07] MEDS ORDERED: traMADol HCl 50 MG TAB PO PRN (12:41)
[2018-11-07] MEDS ORDERED: Polyethylene Glycol 3350 17 GM Packet PO PRN (12:41)
[2018-11-07] MEDS: HYDROcodone/Acetaminophen 5/325 mg Tablet PO PRN (13:13)
[2018-11-07] MEDS: Ipratropium Bromide 2.5 ml Neb NEB SCH ×3 (14:36→23:20)
--- NOTE | 2018-11-07 15:01 | PDOC.HOSPP ---
- Subjective Subjective: Patient seen and examined. No new complaints. No overnight events - Objective Vital Signs & Weight: Vital Signs (12 hours) Temp Pulse Resp BP Pulse Ox 11/07/18 13:05 99.5 F 83 16 145/67 H 92 L 11/07/18 08:00 92 L 11/07/18 07:45 99.2 F 82 16 148/69 H 92 L 11/07/18 05:17 98.7 F 87 20 128/67 92 L Weight Admit Weight 138 lb Weight 138 lb Result Diagrams: 11/06/18 19:12 11/06/18 19:12 Additional Labs: Accuchecks 11/07/18 11/07/18 11/06/18 10:38 05:26 23:55 POC Glucose 107 100 128 H ROS - Review of Systems All systems: All other ROS were reviewed and found negative. Eyes: denies: pain, vision change, conjunctivae inflammation, eyelid inflammation, redness, other ENT: denies: ear pain, ear discharge, nose pain, nose discharge, nose congestion , mouth pain, mouth swelling, throat pain, throat swelling, other Respiratory: denies: cough, dry, shortness of breath, hemoptysis, SOB with excertion, pleuritic pain, sputum, wheezing, other Cardiovascular: denies: chest pain, palpitations, orthopnea, paroxysmal noc. dyspnea, edema, light headedness, other Gastrointestinal: denies: nausea, vomitting, abdominal pain, diarrhea, constipation, melena, hematochezia, other Genitourinary: denies: dysuria, frequency, incontinence, hematuria, retention, other Musculoskeletal: denies: neck pain, shoulder pain, arm pain, back pain, hand pain, leg pain, foot pain, other Skin: denies: rash, lesions, lalito, bruising, other - Medication Medications: Active Medications Generic Name Dose Route Start Last Admin Trade Name Freq PRN Reason Stop Dose Admin Hydrocodone Bitart/Acetaminophen 1 tab 11/07/18 12:40 11/07/18 13:13 [place] 5/325 PO 1 tab Q4H PRN Administration Moderate Pain (4-6) Piperacillin Sod/Tazobactam 100 mls @ 200 mls/hr 11/07/18 03:00 11/07/18 03: 52 Sod 3.375 gm/ Sodium Chloride IVPB 100 mls 0300,1500,2100 MIKEY Administration Sodium Chloride 1,000 mls @ 75 mls/hr 11/06/18 23:30 11/07/18 13:16 Normal Saline 0.9% IV 1,000 mls .[id number] MIKEY Administration Ipratropium [place] 2.5 ml 11/07/18 13:00 11/07/18 14:36 Atrovent NEB Not Given [id number] MIKEY - Exam NAD, awake alert Eye: PERRL, anicteric sclera ENT: normocephalic atraumatic, no oropharyngeal lesions Neck: supple, symmetric, no JVD Heart: RRR, no murmur, no gallops Respiratory: CTAB, no wheezes, no rales Gastrointestinal: soft, non-tender, non-distended Extremities: no cyanosis, no clubbing Skin: normal turgor, no lesions Neurological: CN's grossly intact, no focal deficits Musculoskeletal: normal tone Psychiatric: normal affect, normal behavior Hosp A/P (1) Dehydration Code(s): E86.0 - DEHYDRATION Status: Acute (2) Encephalopathy acute Code(s): G93.40 - ENCEPHALOPATHY, UNSPECIFIED Status: Acute (3) Hyperkalemia Code(s): E87.5 - HYPERKALEMIA Status: Acute (4) UTI (urinary tract infection) Status: Acute (5) Anemia, normocytic normochromic Code(s): D64.9 - ANEMIA, UNSPECIFIED Status: Chronic (6) Anxiety and depression Code(s): F41.9 - ANXIETY DISORDER, UNSPECIFIED; F32.9 - MAJOR DEPRESSIVE DISORDER, SINGLE EPISODE, UNSPECIFIED Status: Chronic (7) Bipolar disorder Code(s): F31.9 - BIPOLAR DISORDER, UNSPECIFIED Status: Chronic Qualifiers: (8) Diabetes type 2, controlled Code(s): E11.9 - TYPE 2 DIABETES MELLITUS WITHOUT COMPLICATIONS Status: Chronic (9) Dyslipidemia Code(s): E78.5 - HYPERLIPIDEMIA, UNSPECIFIED Status: Chronic (10) Hypertension Code(s): I10 - ESSENTIAL (PRIMARY) HYPERTENSION Status: Chronic (11) Sacral decubitus ulcer, stage III Code(s): L89.153 - PRESSURE ULCER OF SACRAL REGION, STAGE 3 Status: Chronic - Plan old records reviewed/req, continue antibiotics continue antibiotics as ordered medication reviewed as above symptomatic treatment wound care nutritional support start PT home medication reconciled repeat labs tomorrow follow culture
[2018-11-07] MEDS: metFORMIN 500 MG TAB PO SCH (16:40)
[2018-11-07] MEDS: Melatonin 3 MG TAB PO SCH (20:33)
[2018-11-07] MEDS: Multivitamin W/ Minerals 1 TAB PO SCH (20:33)
[2018-11-07] MEDS: Nortriptyline HCl 25 MG CAP PO SCH (20:35)
[2018-11-07] MEDS: risperiDONE 0.25 MG TAB PO SCH (20:36)
[2018-11-07] MEDS: rOPINIRole HCl 0.25 MG TAB PO SCH (20:36)
[2018-11-07] MEDS: Gabapentin 300 MG CAP PO SCH (20:37)
[2018-11-07] MEDS: Ferrous Gluconate 324 MG TAB PO SCH (20:37)
[2018-11-07] MEDS: Atorvastatin Calcium 10 MG TAB PO SCH (20:38)
[2018-11-08] MEDS: Sodium Chloride 0.9% 1,000 ML IV SCH ×2 (03:05→08:31)
[2018-11-08] MEDS: Piperacillin/Tazobactam 3.375 GM in Sodium Chloride 0.9% 100 ML IVPB SCH ×3 (03:06→20:46)
[2018-11-08] MEDS: Ipratropium Bromide 2.5 ml Neb NEB SCH ×3 (07:48→18:33)
[2018-11-08] MEDS: DULoxetine 60 MG CAP PO SCH (08:31)
[2018-11-08] MEDS: Clopidogrel Bisulfate 75 MG TAB PO SCH (08:31)
[2018-11-08] MEDS: Ascorbic Acid 500 mg Chewable Tablet PO SCH (08:31)
[2018-11-08] MEDS: Nortriptyline HCl 25 MG CAP PO SCH ×2 (08:31→20:45)
[2018-11-08] MEDS: Zinc Sulfate 220 MG CAP PO SCH (08:31)
[2018-11-08] MEDS: Gabapentin 300 MG CAP PO SCH ×2 (08:31→20:45)
[2018-11-08] MEDS: Ferrous Gluconate 324 MG TAB PO SCH ×2 (08:31→20:45)
[2018-11-08] MEDS: metFORMIN 500 MG TAB PO SCH ×2 (08:31→16:15)
[2018-11-08] MEDS: Aspirin 325 mg Enteric Coated Tablet PO SCH (08:31)
[2018-11-08] MEDS: Multivitamin W/ Minerals 1 TAB PO SCH ×2 (08:31→20:44)
[2018-11-08] MEDS: HYDROcodone/Acetaminophen 5/325 mg Tablet PO PRN ×2 (11:00→17:57)
--- NOTE | 2018-11-08 12:42 | PDOC.HOSPP ---
- Subjective Subjective: Patient seen and examined. No new complaints. No overnight events - Objective Vital Signs & Weight: Vital Signs (12 hours) Temp Pulse Resp BP Pulse Ox 11/08/18 07:40 97.9 F 83 16 153/81 H 99 Weight Admit Weight 138 lb Weight 138 lb I&O: 11/07/18 11/08/18 11/09/18 06:59 06:59 06:59 Intake Total 3292 Balance 3292 Result Diagrams: 11/06/18 19:12 11/06/18 19:12 Additional Labs: Accuchecks 11/08/18 11/08/18 11/07/18 12:14 04:32 20:01 POC Glucose 185 H 130 H 240 H 11/07/18 16:36 POC Glucose 164 H ROS - Review of Systems All systems: All other ROS were reviewed and found negative. Eyes: denies: pain, vision change, conjunctivae inflammation, eyelid inflammation, redness, other ENT: denies: ear pain, ear discharge, nose pain, nose discharge, nose congestion , mouth pain, mouth swelling, throat pain, throat swelling, other Respiratory: denies: cough, dry, shortness of breath, hemoptysis, SOB with excertion, pleuritic pain, sputum, wheezing, other Cardiovascular: denies: chest pain, palpitations, orthopnea, paroxysmal noc. dyspnea, edema, light headedness, other Gastrointestinal: denies: nausea, vomitting, abdominal pain, diarrhea, constipation, melena, hematochezia, other Genitourinary: denies: dysuria, frequency, incontinence, hematuria, retention, other Musculoskeletal: denies: neck pain, shoulder pain, arm pain, back pain, hand pain, leg pain, foot pain, other - Medication Medications: Active Medications Generic Name Dose Route Start Last Admin Trade Name Freq PRN Reason Stop Dose Admin Hydrocodone Bitart/Acetaminophen 1 tab 11/07/18 12:40 11/08/18 11:00 [place] 5/325 PO 1 tab Q4H PRN Administration Moderate Pain (4-6) Ascorbic Acid 500 mg 11/08/18 09:00 11/08/18 08:31 Vitamin C PO 500 mg DAILY MIKEY Administration Aspirin 325 mg 11/08/18 09:00 11/08/18 08:31 Ecotrin PO 325 mg DAILY MIKEY Administration Atorvastatin Calcium 10 mg 11/07/18 21:00 08/05/19 20:38 Lipitor PO 10 mg HS MIKEY Administration Cholecalciferol 2,000 units 11/08/18 09:00 11/08/18 08:30 Vitamin D3 PO 2,000 units DAILY MIKEY Administration Clopidogrel Bisulfate 75 mg 11/08/18 09:00 11/08/18 08:31 Plavix PO 75 mg DAILY MIKEY Administration Diltiazem HCl 180 mg 11/08/18 09:00 11/08/18 08:31 Cardizem Cd PO 180 mg DAILY MIKEY Administration Duloxetine HCl 60 mg 11/08/18 09:00 11/08/18 08:31 Cymbalta PO 60 mg DAILY MIKEY Administration Ferrous Gluconate 324 mg 11/07/18 21:00 11/08/18 08:31 Fergon PO 324 mg BID MIKEY Administration Gabapentin 300 mg 11/07/18 21:00 11/08/18 08:31 Neurontin PO 300 mg BID MIKEY Administration Piperacillin Sod/Tazobactam 100 mls @ 200 mls/hr 11/07/18 03:00 11/08/18 03: 06 Sod 3.375 gm/ Sodium Chloride IVPB 100 mls 0300,1500,2100 MIKEY Administration Sodium Chloride 1,000 mls @ 75 mls/hr 11/06/18 23:30 11/08/18 08:31 Normal Saline 0.9% IV 1,000 mls .[id number] MIKEY Administration Ipratropium [place] 2.5 ml 11/07/18 13:00 11/08/18 07:48 Atrovent NEB Not Given [id number] MIKEY Iron/Minerals/Multivitamins 1 tab 11/07/18 21:00 11/08/18 08:31 Theragran M PO 1 tab BID MIKEY Administration Melatonin 6 mg 11/07/18 21:00 11/07/18 20:33 Melatonin PO 6 mg HS MIKEY Administration Metformin HCl 500 mg 11/07/18 17:00 11/08/18 08:31 Glucophage PO 500 mg BID-WM MIKEY Administration Nortriptyline HCl 50 mg 11/07/18 21:00 11/08/18 08:31 Pamelor PO 50 mg BID MIKEY Administration Pantoprazole Sodium 40 mg 11/08/18 09:00 11/08/18 08:31 Protonix PO 40 mg DAILY MIKEY Administration Risperidone 0.5 mg 11/07/18 21:00 11/07/18 20:36 Risperidone PO 0.5 mg HS MIKEY Administration Ropinirole HCl 0.75 mg 11/07/18 21:00 11/07/18 20:36 Requip PO 0.75 mg QPM MIKEY Administration Zinc Sulfate 220 mg 11/08/18 09:00 11/08/18 08:31 Zinc Sulfate PO 220 mg DAILY MIKEY Administration - Exam NAD, awake alert Eye: PERRL, anicteric sclera ENT: normocephalic atraumatic, no oropharyngeal lesions Neck: supple, symmetric, no JVD Heart: RRR, no murmur, no gallops, no rubs Respiratory: CTAB, no wheezes, no rales, no ronchi Gastrointestinal: soft, non-tender, non-distended, normal bowel sounds Extremities: no cyanosis, no clubbing Skin: normal turgor, no lesions Neurological: CN's grossly intact, normal sensation to touch, no focal deficits Musculoskeletal: normal tone, normal strength Psychiatric: normal affect, normal behavior Hosp A/P (1) Dehydration Code(s): E86.0 - DEHYDRATION Status: Acute (2) Encephalopathy acute Code(s): G93.40 - ENCEPHALOPATHY, UNSPECIFIED Status: Acute (3) Hyperkalemia Code(s): E87.5 - HYPERKALEMIA Status: Acute (4) UTI (urinary tract infection) Status: Acute (5) Anemia, normocytic normochromic Code(s): D64.9 - ANEMIA, UNSPECIFIED Status: Chronic (6) Anxiety and depression Code(s): F41.9 - ANXIETY DISORDER, UNSPECIFIED; F32.9 - MAJOR DEPRESSIVE DISORDER, SINGLE EPISODE, UNSPECIFIED Status: Chronic (7) Bipolar disorder Code(s): F31.9 - BIPOLAR DISORDER, UNSPECIFIED Status: Chronic Qualifiers: (8) Diabetes type 2, controlled Code(s): E11.9 - TYPE 2 DIABETES MELLITUS WITHOUT COMPLICATIONS Status: Chronic (9) Dyslipidemia Code(s): E78.5 - HYPERLIPIDEMIA, UNSPECIFIED Status: Chronic (10) Hypertension Code(s): I10 - ESSENTIAL (PRIMARY) HYPERTENSION Status: Chronic (11) Sacral decubitus ulcer, stage III Code(s): L89.153 - PRESSURE ULCER OF SACRAL REGION, STAGE 3 Status: Chronic - Plan old records reviewed/req, continue antibiotics, social problems specialist, dc IVF continue zosyn dc ivf wound care medication reviewed as above symptomatic treatment
[2018-11-08] MEDS: Atorvastatin Calcium 10 MG TAB PO SCH (20:44)
[2018-11-08] MEDS: risperiDONE 0.25 MG TAB PO SCH (20:44)
[2018-11-08] MEDS: rOPINIRole HCl 0.25 MG TAB PO SCH (20:45)
[2018-11-08] MEDS: Melatonin 3 MG TAB PO SCH (20:46)
[2018-11-09] MEDS: Ipratropium Bromide 2.5 ml Neb NEB SCH ×4 (00:18→18:42)
[2018-11-09] MEDS: Piperacillin/Tazobactam 3.375 GM in Sodium Chloride 0.9% 100 ML IVPB SCH ×3 (02:23→21:11)
--- NOTE | 2018-11-09 07:44 | PDOC.HOSPP ---
- Subjective Subjective: Patient seen and examined. No new complaints. No overnight events - Objective Vital Signs & Weight: Vital Signs (12 hours) Temp Pulse Resp BP BP Pulse Ox 11/09/18 07:18 98.2 F 84 18 174/81 H 93 L 11/09/18 00:18 83 20 100 11/08/18 20:00 97.8 F 83 18 162/68 H 100 Weight Admit Weight 138 lb Weight 138 lb I&O: 11/08/18 11/09/18 11/10/18 06:59 06:59 06:59 Intake Total 3292 550 Balance 3292 550 Result Diagrams: 11/06/18 19:12 11/06/18 19:12 Additional Labs: Accuchecks 11/09/18 11/08/18 11/08/18 04:15 20:54 16:14 POC Glucose 111 H 144 H 187 H 11/08/18 12:14 POC Glucose 185 H ROS - Review of Systems All systems: All other ROS were reviewed and found negative. Constitutional: denies: fever, chills, sweats, weakness, malaise, other ENT: denies: ear pain, ear discharge, nose pain, nose discharge, nose congestion , mouth pain, mouth swelling, throat pain, throat swelling, other Respiratory: denies: cough, dry, shortness of breath, hemoptysis, SOB with excertion, pleuritic pain, sputum, wheezing, other Cardiovascular: denies: chest pain, palpitations, orthopnea, paroxysmal noc. dyspnea, edema, light headedness, other Gastrointestinal: denies: nausea, vomitting, abdominal pain, diarrhea, constipation, melena, hematochezia, other Genitourinary: denies: dysuria, frequency, incontinence, hematuria, retention, other Musculoskeletal: denies: neck pain, shoulder pain, arm pain, back pain, hand pain, leg pain, foot pain, other - Medication Medications: Active Medications Generic Name Dose Route Start Last Admin Trade Name Freq PRN Reason Stop Dose Admin Hydrocodone Bitart/Acetaminophen 1 tab 11/07/18 12:40 11/08/18 17:57 [place] 5/325 PO 1 tab Q4H PRN Administration Moderate Pain (4-6) Ascorbic Acid 500 mg 11/08/18 09:00 11/08/18 08:31 Vitamin C PO 500 mg DAILY MIKEY Administration Aspirin 325 mg 11/08/18 09:00 11/08/18 08:31 Ecotrin PO 325 mg DAILY MIKEY Administration Atorvastatin Calcium 10 mg 11/07/18 21:00 11/08/18 20:44 Lipitor PO 10 mg HS MIKEY Administration Cholecalciferol 2,000 units 11/08/18 09:00 11/08/18 08:30 Vitamin D3 PO 2,000 units DAILY MIKEY Administration Clopidogrel Bisulfate 75 mg 11/08/18 09:00 11/08/18 08:31 Plavix PO 75 mg DAILY MIKEY Administration Diltiazem HCl 180 mg 11/08/18 09:00 11/08/18 08:31 Cardizem Cd PO 180 mg DAILY MIKEY Administration Duloxetine HCl 60 mg 11/08/18 09:00 11/08/18 08:31 Cymbalta PO 60 mg DAILY [facility] Administration Ferrous Gluconate 324 mg 11/07/18 21:00 11/08/18 20:45 Fergon PO 324 mg BID MIKEY Administration Gabapentin 300 mg 11/07/18 21:00 11/08/18 20:45 Neurontin PO 300 mg BID [facility] Administration Piperacillin Sod/Tazobactam 100 mls @ 200 mls/hr 11/07/18 03:00 11/09/18 02: 23 Sod 3.375 gm/ Sodium Chloride IVPB 100 mls 0300,1500,2100 MIKEY Administration Insulin Human Lispro 0 units 11/06/18 23:32 11/08/18 17:56 Humalog SC 2 unit .MILD SLIDING SCALE PRN Administration Mild Correctional Scale Ipratropium [place] 2.5 ml 11/07/18 13:00 11/09/18 06:22 Atrovent NEB Not Given [id number] [facility] Iron/Minerals/Multivitamins 1 tab 11/07/18 21:00 11/08/18 20:44 Theragran M PO 1 tab BID [facility] Administration Melatonin 6 mg 11/07/18 21:00 11/08/18 20:46 Melatonin PO 6 mg HS [facility] Administration Metformin HCl 500 mg 11/07/18 17:00 11/08/18 16:15 Glucophage PO 500 mg BID-WM [facility] Administration Nortriptyline HCl 50 mg 11/07/18 21:00 11/08/18 20:45 Pamelor PO 50 mg BID MIKEY Administration Pantoprazole Sodium 40 mg 11/08/18 09:00 11/08/18 08:31 Protonix PO 40 mg DAILY MIKEY Administration Risperidone 0.5 mg 11/07/18 21:00 11/08/18 20:44 Risperidone PO 0.5 mg HS MIKEY Administration Ropinirole HCl 0.75 mg 11/07/18 21:00 11/08/18 20:45 Requip PO 0.75 mg QPM MIKEY Administration Zinc Sulfate 220 mg 11/08/18 09:00 11/08/18 08:31 Zinc Sulfate PO 220 mg DAILY MIKEY Administration - Exam NAD, ill appearing Eye: PERRL, anicteric sclera ENT: normocephalic atraumatic, no oropharyngeal lesions Neck: supple, symmetric, no JVD Heart: RRR, no murmur, no gallops Respiratory: CTAB, no wheezes, no rales, no ronchi Gastrointestinal: soft, non-tender, non-distended, normal bowel sounds Extremities: no cyanosis, no clubbing Skin: normal turgor, no lesions Neurological: no focal deficits Musculoskeletal: normal tone, normal strength Psychiatric: normal affect, normal behavior Hosp A/P (1) Dehydration Code(s): E86.0 - DEHYDRATION Status: Resolved (2) Encephalopathy acute Code(s): G93.40 - ENCEPHALOPATHY, UNSPECIFIED Status: Resolved (3) Hyperkalemia Code(s): E87.5 - HYPERKALEMIA Status: Resolved (4) UTI (urinary tract infection) Status: Acute (5) Anemia, normocytic normochromic Code(s): D64.9 - ANEMIA, UNSPECIFIED Status: Chronic (6) Anxiety and depression Code(s): F41.9 - ANXIETY DISORDER, UNSPECIFIED; F32.9 - MAJOR DEPRESSIVE DISORDER, SINGLE EPISODE, UNSPECIFIED Status: Chronic (7) Bipolar disorder Code(s): F31.9 - BIPOLAR DISORDER, UNSPECIFIED Status: Chronic Qualifiers: (8) Diabetes type 2, controlled Code(s): E11.9 - TYPE 2 DIABETES MELLITUS WITHOUT COMPLICATIONS Status: Chronic (9) Dyslipidemia Code(s): E78.5 - HYPERLIPIDEMIA, UNSPECIFIED Status: Chronic (10) Hypertension Code(s): I10 - ESSENTIAL (PRIMARY) HYPERTENSION Status: Chronic (11) Sacral decubitus ulcer, stage III Code(s): L89.153 - PRESSURE ULCER OF SACRAL REGION, STAGE 3 Status: Chronic - Plan old records reviewed/req, continue antibiotics, social secretary continue zosyn based on culture result wound care expecting discharge tomorrow to snu medication reviewed as above symptomatic treatment
[2018-11-09] MEDS: HYDROcodone/Acetaminophen 5/325 mg Tablet PO PRN (08:55)
[2018-11-09] MEDS: Nortriptyline HCl 25 MG CAP PO SCH ×2 (08:55→21:10)
[2018-11-09] MEDS: DULoxetine 60 MG CAP PO SCH (08:56)
[2018-11-09] MEDS: Clopidogrel Bisulfate 75 MG TAB PO SCH (08:56)
[2018-11-09] MEDS: Ascorbic Acid 500 mg Chewable Tablet PO SCH (08:56)
[2018-11-09] MEDS: Multivitamin W/ Minerals 1 TAB PO SCH ×2 (08:56→21:09)
[2018-11-09] MEDS: Aspirin 325 mg Enteric Coated Tablet PO SCH (08:56)
[2018-11-09] MEDS: Gabapentin 300 MG CAP PO SCH ×2 (08:56→21:10)
[2018-11-09] MEDS: Ferrous Gluconate 324 MG TAB PO SCH ×2 (08:56→21:09)
[2018-11-09] MEDS: metFORMIN 500 MG TAB PO SCH ×2 (08:56→16:25)
[2018-11-09] MEDS: Zinc Sulfate 220 MG CAP PO SCH (08:58)
[2018-11-09 09:45] LABS: #Basophils 0.1 thou/uL (0.0-0.2); #Eosinphils 0.2 thou/uL (0.0-0.7); #Lymphocytes 1.3 thou/uL (1.20-3.40); #Monocytes 0.6 thou/uL (0.11-0.59); #Neutrophils 7.9 thou/uL (1.40-6.50); %Basophils 0.8 % (0.0-1.0); %Eosinophils 2.4 % (0.0-10.0); %Monocytes 6.1 % (0.0-10.0); %Neutrophils 77.6 % (42.0-75.0); Mean Corpuscular HGB CONC 32.5 g/dL (32.0-36.0); Mean Corpuscular Hemoglobin 30.4 pg (27.0-31.0); Mean Corpuscular Volume 93.6 fL (78.0-98.0); Mean Platelet Volume 7.4 fL (7.4-10.4); Platelet Count 356 thou/uL (130-400); White Blood Cell (WBC) Count 10.1 thou/uL (4.8-10.8)
[2018-11-09 10:09] LABS: ALT (SGPT) 8 U/L (8-55); AST (SGOT) 15 U/L (5-34); Albumin 3.2 g/dL (3.4-4.8); Alkaline Phosphatase 99 U/L (40-150); Anion Gap 11 mmol/L (10-20); BUN (Urea Nitrogen) 21 mg/dL (9.8-20.1); Bilirubin, Total 0.2 mg/dL (0.2-1.2); CRP (Inflammatory) 0.84 mg/dL (= or < 0.5); Calc. Creatinine Clearance 61 mL/min (70-130); Calcium 9.9 mg/dL (7.8-10.44); Carbon Dioxide 23 mmol/L (23-31); Chloride 107 mmol/L (98-107); Estimated GFR-MDRD 68; Globulin 2.6 g/dL (2.4-3.5); Glucose 93 mg/dL (83-110); Potassium 4.9 mmol/L (3.5-5.1); Protein, Total 5.8 g/dL (6.0-8.3); Sodium 136 mmol/L (136-145)
[2018-11-09] MEDS: Atorvastatin Calcium 10 MG TAB PO SCH (21:09)
[2018-11-09] MEDS: Melatonin 3 MG TAB PO SCH (21:10)
[2018-11-09] MEDS: risperiDONE 0.25 MG TAB PO SCH (21:10)
[2018-11-09] MEDS: rOPINIRole HCl 0.25 MG TAB PO SCH (21:10)
[2018-11-10] MEDS: Ipratropium Bromide 2.5 ml Neb NEB SCH ×4 (00:07→18:32)
[2018-11-10] MEDS: Piperacillin/Tazobactam 3.375 GM in Sodium Chloride 0.9% 100 ML IVPB SCH ×2 (04:41→14:55)
[2018-11-10] MEDS: Clopidogrel Bisulfate 75 MG TAB PO SCH (08:31)
[2018-11-10] MEDS: Aspirin 325 mg Enteric Coated Tablet PO SCH (08:31)
[2018-11-10] MEDS: Ascorbic Acid 500 mg Chewable Tablet PO SCH (08:31)
[2018-11-10] MEDS: Ferrous Gluconate 324 MG TAB PO SCH ×2 (08:31→21:00)
[2018-11-10] MEDS: DULoxetine 60 MG CAP PO SCH (08:31)
[2018-11-10] MEDS: Multivitamin W/ Minerals 1 TAB PO SCH ×2 (08:31→21:01)
[2018-11-10] MEDS: Nortriptyline HCl 25 MG CAP PO SCH ×2 (08:31→21:01)
[2018-11-10] MEDS: Gabapentin 300 MG CAP PO SCH ×2 (08:32→21:01)
[2018-11-10] MEDS: Zinc Sulfate 220 MG CAP PO SCH (08:32)
[2018-11-10] MEDS: metFORMIN 500 MG TAB PO SCH ×2 (08:32→16:52)
--- NOTE | 2018-11-10 19:58 | PRG ---
DATE OF SERVICE: 11/10/2018 SUBJECTIVE: 73-year-old female, [facility] resident, presented to the hospital with altered mentation. She was found to have urinary tract infection. She continues to have intermittent confusion. There was no fever or chills reported. No dysuria, hematuria, or urgency reported. REVIEW OF SYSTEMS: Limited due to current mentation. OBJECTIVE: VITAL SIGNS: Temperature 98.4, pulse of 86, blood pressure of 154/69, O2 saturation 95% on room air, respirations of 18. GENERAL: 73-year-old female, in no apparent distress. LUNGS: Clear to auscultation bilaterally. No rales or wheezing. HEART: S1 and S2 present. Regular. ABDOMEN: Soft. Bowel sounds present. EXTREMITIES: No edema or calf tenderness. NEUROLOGIC: Grossly nonfocal. LABORATORY FINDINGS: Chest x-ray by my review was negative for infiltrate. CT scan of the brain was negative. Urine culture showed E coli, sensitive to ceftriaxone. IMPRESSION: 1. Toxic metabolic encephalopathy secondary to urinary tract infection. 2. Dehydration. 3. Anxiety. 4. Depression, mild, stable. 5. Diabetes mellitus type 2. 6. Dementia. 7. Anemia. 8. Restless legs syndrome. 9. Hyperlipidemia. 10. Hypertension. 11. Carotid stenosis. 12. Chronic obstructive pulmonary disease. 13. Suspected pulmonary nodule on chest x-ray. 14. Chronic kidney disease, stage 2. 15. Hyperkalemia, resolved. 16. Chronic anemia. PLAN: We will change antibiotic to ceftriaxone based on the culture. Postvoid residual will be checked. Antibiotics will be changed to oral in a.m. Plan was discussed with the daughter, Jannie over the phone. Continue other medications. Job ID: [id number]
[2018-11-10] MEDS ORDERED: cefTRIAXone\\ROCEPHIN 1 GM in Sodium Chloride 0.9% 100 ML IVPB SCH (20:00)
[2018-11-10] MEDS: rOPINIRole HCl 0.25 MG TAB PO SCH (21:00)
[2018-11-10] MEDS: risperiDONE 0.25 MG TAB PO SCH (21:00)
[2018-11-10] MEDS: Melatonin 3 MG TAB PO SCH (21:01)
[2018-11-10] MEDS: Atorvastatin Calcium 10 MG TAB PO SCH (21:01)
[2018-11-11] MEDS: Ipratropium Bromide 2.5 ml Neb NEB SCH ×3 (00:16→14:05)
[2018-11-11] MEDS: Clopidogrel Bisulfate 75 MG TAB PO SCH (08:39)
[2018-11-11] MEDS: DULoxetine 60 MG CAP PO SCH (08:39)
[2018-11-11] MEDS: Zinc Sulfate 220 MG CAP PO SCH (08:39)
[2018-11-11] MEDS: Ferrous Gluconate 324 MG TAB PO SCH (08:39)
[2018-11-11] MEDS: metFORMIN 500 MG TAB PO SCH ×2 (08:39→16:58)
[2018-11-11] MEDS: Ascorbic Acid 500 mg Chewable Tablet PO SCH (08:39)
[2018-11-11] MEDS: Multivitamin W/ Minerals 1 TAB PO SCH (08:39)
[2018-11-11] MEDS: Nortriptyline HCl 25 MG CAP PO SCH (08:39)
[2018-11-11] MEDS: Aspirin 325 mg Enteric Coated Tablet PO SCH (08:40)
[2018-11-11] MEDS: Gabapentin 300 MG CAP PO SCH (08:44)
--- NOTE | 2018-11-11 10:42 | PDOC.HOSPP ---
- Subjective Encounter Date: 11/11/18 Encounter Time: 10:40 Subjective: Patient seen and examined for Encephalopathy. Mentation improving. No new fever/ abd pain/dysuria. No other complaints. No overnight events - Objective Vital Signs & Weight: Vital Signs (12 hours) Temp Pulse Resp BP BP Pulse Ox 11/11/18 08:00 97.3 F L 95 18 185/78 H 95 11/11/18 00:16 98.0 F 84 16 191/77 H 93 L Weight Admit Weight 138 lb Weight 138 lb I&O: 11/10/18 11/11/18 11/12/18 06:59 06:59 06:59 Intake Total 1340 720 240 Balance 1340 720 240 Result Diagrams: 11/09/18 09:24 11/09/18 09:24 Additional Labs: Accuchecks 11/11/18 11/10/18 11/10/18 04:20 19:32 11:55 POC Glucose 123 H 146 H 157 H Microbiology 11/03/18 17:27 Urine voided Urine Culture - Final Escherichia coli Radiology Reviewed by me: Yes (CT brain - neg) ROS - Review of Systems Respiratory: denies: cough, dry, shortness of breath, hemoptysis, SOB with excertion, pleuritic pain, sputum, wheezing, other Cardiovascular: denies: chest pain, palpitations, orthopnea, paroxysmal noc. dyspnea, edema, light headedness, other Gastrointestinal: denies: nausea, vomitting, abdominal pain, diarrhea, constipation, melena, hematochezia, other - Medication Medications: Active Medications Generic Name Dose Route Start Last Admin Trade Name Freq PRN Reason Stop Dose Admin Hydrocodone Bitart/Acetaminophen 1 tab 11/07/18 12:40 11/09/18 08:55 [place] 5/325 PO 1 tab Q4H PRN Administration Moderate Pain (4-6) Ascorbic Acid 500 mg 11/08/18 09:00 11/11/18 08:39 Vitamin C PO 500 mg DAILY MIKEY Administration Aspirin 325 mg 11/08/18 09:00 11/11/18 08:40 Ecotrin PO 325 mg DAILY MIKEY Administration Atorvastatin Calcium 10 mg 11/07/18 21:00 11/10/18 21:01 Lipitor PO 10 mg HS MIKEY Administration Cholecalciferol 2,000 units 11/08/18 09:00 11/11/18 08:39 Vitamin D3 PO 2,000 units DAILY MIKEY Administration Clopidogrel Bisulfate 75 mg 11/08/18 09:00 11/11/18 08:39 Plavix PO 75 mg DAILY MIKEY Administration Diltiazem HCl 180 mg 11/08/18 09:00 11/11/18 08:39 Cardizem Cd PO 180 mg DAILY MIKEY Administration Duloxetine HCl 60 mg 11/08/18 09:00 11/11/18 08:39 Cymbalta PO 60 mg DAILY MIKEY Administration Ferrous Gluconate 324 mg 11/07/18 21:00 11/11/18 08:39 Fergon PO 324 mg BID MIKEY Administration Gabapentin 300 mg 11/07/18 21:00 11/11/18 08:44 Neurontin PO 300 mg BID MIKEY Administration Hydralazine HCl 10 mg 11/07/18 12:40 11/09/18 18:34 Apresoline SLOW IVP 10 mg Q4H PRN Administration SBP > 180 and HR < 70 Ceftriaxone Sodium 1 gm/ 100 mls @ 200 mls/hr 11/10/18 20:00 11/10/18 21:00 Sodium Chloride IVPB 100 mls Q24HR MIKEY Administration Insulin Human Lispro 0 units 11/06/18 23:32 11/08/18 17:56 Humalog SC 2 unit .MILD SLIDING SCALE PRN Administration Mild Correctional Scale Ipratropium [place] 2.5 ml 11/07/18 13:00 11/11/18 06:52 Atrovent NEB Not Given [id number] MIKEY Iron/Minerals/Multivitamins 1 tab 11/07/18 21:00 11/11/18 08:39 Theragran M PO 1 tab BID MIKEY Administration Melatonin 6 mg 11/07/18 21:00 11/10/18 21:01 Melatonin PO 6 mg HS MIKEY Administration Metformin HCl 500 mg 11/07/18 17:00 11/11/18 08:39 Glucophage PO 500 mg BID-WM MIKEY Administration Nortriptyline HCl 50 mg 11/07/18 21:00 11/11/18 08:39 Pamelor PO 50 mg BID MIKEY Administration Pantoprazole Sodium 40 mg 11/08/18 09:00 11/11/18 08:39 Protonix PO 40 mg DAILY MIKEY Administration Risperidone 0.5 mg 11/07/18 21:00 11/10/18 21:00 Risperidone PO 0.5 mg HS MIKEY Administration Ropinirole HCl 0.75 mg 11/07/18 21:00 11/10/18 21:00 Requip PO 0.75 mg QPM MIKEY Administration Zinc Sulfate 220 mg 11/08/18 09:00 11/11/18 08:39 Zinc Sulfate PO 220 mg DAILY MIKEY Administration - Exam NAD Neck: supple, no JVD Heart: RRR, no rubs Respiratory: CTAB, no rales Gastrointestinal: soft, non-tender, normal bowel sounds Extremities: no edema Hosp A/P - Plan IMPRESSION: 1. Toxic metabolic encephalopathy secondary to E coli UTI. 2. Dehydration - improved 3. Anxiety. 4. Depression, mild, stable. 5. Diabetes mellitus type 2. 6. Dementia. 7. Anemia. 8. Restless legs syndrome. 9. Hyperlipidemia. 10. Hypertension - uncontrolled. 11. Carotid stenosis. 12. Chronic obstructive pulmonary disease. 13. Suspected pulmonary nodule on chest x-ray. 14. Chronic kidney disease, stage 2. 15. Hyperkalemia, resolved. 16. Chronic anemia. PLAN: Cont IV Ceftriaxone Postvoid <50 ml Add PO Hydralazine due to uncontrolled BP. DC later today to [facility] if BP <160 systolic Cont other meds as above
[2018-11-11] MEDS ORDERED: hydrALAZINE 25 MG TAB PO SCH ×2 (10:45→15:00)
--- NOTE | 2018-11-11 13:13 | PDOC.EVN ---
Event Note - Event Note Event Note: Repeat SBP in 180s. Will increase Cardizem to 120 mg BID. Cont Po Hydralazine. DC to [facility] once BP stable
[2018-11-11] MEDS ORDERED: Diltiazem HCl SR 60 mg Capsule PO SCH (13:15)
[2018-11-11] MEDS ORDERED: cefTRIAXone\\ROCEPHIN 1 GM in Sodium Chloride 0.9% 100 ML IVPB SCH (14:30)
[2018-11-11 18:00] VITALS: BP 178/75; TEMP 98.1
--- NOTE | 2018-11-11 22:23 | DIS ---
DATE OF ADMISSION: 11/06/2018 DATE OF DISCHARGE: 11/11/2018 DISCHARGE DISPOSITION: [facility] in [place]. The patient was seen and examined on the day of discharge. Denies any new complaints. No chest pain, shortness of breath, or palpitations. INPATIENT CONSULTANTS: None. DISCHARGE MEDICATIONS: 1. Omnicef 300 mg b.i.d. for next 5 days. 2. Cardizem CD 120 mg b.i.d. 3. Hydralazine 25 mg b.i.d. 4. All other medications were left unchanged. BRIEF HOSPITAL COURSE: The patient is a 73-year-old female, a residential resident, presented to the hospital with altered mentation. Please refer to the history and physical dictated by Dr. Gaxiola for further details. The patient was admitted to the hospital with a diagnosis of toxic metabolic encephalopathy secondary to urinary tract infection. Urinalysis showed E coli sensitive to cefepime, ceftriaxone, and ceftazidime. She was placed on IV antibiotics that will be changed to oral today. Her mentation has significantly improved. Due to elevated blood pressure, Cardizem CD dose was changed to 120 mg b.i.d. Hydralazine has been added for elevated blood pressure as well. She appears stable for discharge. FINAL DIAGNOSES: 1. Toxic metabolic encephalopathy secondary to Escherichia coli urinary tract infection. 2. Dehydration, resolved. 3. Anxiety. 4. Depression, mild, stable. 5. Diabetes mellitus, type 2. 6. Dementia. 7. Chronic anemia. 8. Restless legs syndrome. 9. Hypertension. 10. Hyperlipidemia. 11. Carotid stenosis. 12. Chronic obstructive pulmonary disease. 13. Questionable pulmonary nodule on the chest x-ray. Primary care physician advised to follow. 14. Hyperkalemia, resolved. 15. Chronic kidney disease, stage 2. 16. Chronic anemia. TIME SPENT: Total time coordinating the discharge of this patient was 33 minutes. Job ID: [id number]
== END 2018-11-11 18:29 | DRG 689 ==
LOC: ERS 18:36 → T4-A 20:00
PROVIDERS: ADMIT Hospitalist; ATTEND Hospitalist
DX: N39.0 Urinary tract infection, site not specified (principal); L89.153 Pressure ulcer of sacral region, stage 3; G92 Toxic encephalopathy; E87.1 Hypo-osmolality and hyponatremia; E11.51 Type 2 diabetes mellitus with diabetic peripheral angiopathy without gangrene; F03.90 Unspecified dementia, unspecified severity, without behavioral disturbance, psychotic disturbance, mood disturbance, and anxiety; G47.30 Sleep apnea, unspecified; M81.0 Age-related osteoporosis without current pathological fracture; E78.5 Hyperlipidemia, unspecified; I25.10 Atherosclerotic heart disease of native coronary artery without angina pectoris; J45.909 Unspecified asthma, uncomplicated; E11.40 Type 2 diabetes mellitus with diabetic neuropathy, unspecified; G25.81 Restless legs syndrome; E87.5 Hyperkalemia; E86.0 Dehydration; F41.9 Anxiety disorder, unspecified; F31.9 Bipolar disorder, unspecified; R91.1 Solitary pulmonary nodule; B96.20 Unspecified Escherichia coli [E. coli] as the cause of diseases classified elsewhere; I12.9 Hypertensive chronic kidney disease with stage 1 through stage 4 chronic kidney disease, or unspecified chronic kidney disease; N18.2 Chronic kidney disease, stage 2 (mild); D63.1 Anemia in chronic kidney disease; E11.22 Type 2 diabetes mellitus with diabetic chronic kidney disease; Z90.49 Acquired absence of other specified parts of digestive tract; Z90.710 Acquired absence of both cervix and uterus; Z88.8 Allergy status to other drugs, medicaments and biological substances; Z79.899 Other long term (current) drug therapy; Z79.1 Long term (current) use of non-steroidal anti-inflammatories (NSAID); Z79.84 Long term (current) use of oral hypoglycemic drugs; Z79.82 Long term (current) use of aspirin
CPT/HCPCS: 36415; 36416; 51701; 70450; 71045; 80053; 81003; 81015; 83605; 84484; 85025; 86140; 93005; 94640; 94760; 96361; 96365; 96366; 96375; A4353; J0360; J0696; J2405; J2543; J3490

== ENCOUNTER 2018-11-18 12:54 | Outpatient (CLI) | payer MEDICARE, BC, OTHER ==
--- NOTE | 2018-11-18 14:34 | ULT ---
RENAL ULTRASOUND: 11/18/18 HISTORY: Renal cysts. COMPARISON: A 04/16/18 study. Real time imaging of the right and left kidneys were performed. Right kidney measures 11.1 and the le ft kidney 10.2 cm in size. There appears to be some mild increased echogenicity to the renal cortex. On the left side, a tiny subcentimeter cyst is noted and on the right side, three small slightly comp roddy appearing cystic lesions are identified. Given their size, they are difficult to characterize but I do not appreciate a significant interval change since the prior exam. The largest measures 1.8 cm. Bladder region is unremarkable. IMPRESSION: 1. Small bilateral renal cysts. 2. Mild increased echogenicity of the cortex of both kidneys suggesting underlying medical renal parenchymal disease. POS: OFF
== END 2018-11-18 12:55 | disposition home or self-care (01) ==
LOC: BICULT 12:54 → ULT 12:55
PROVIDERS: ATTEND Urology
DX: N28.1 Cyst of kidney, acquired (principal); R33.9 Retention of urine, unspecified; N28.89 Other specified disorders of kidney and ureter
CPT/HCPCS: 76770

== ENCOUNTER 2018-12-27 09:39 | Emergency (ER) | payer MEDICARE, BC, OTHER ==
[2018-12-27 10:18] LABS: #Eosinphils 0.1 thou/uL (0.0-0.7); #Monocytes 0.8 thou/uL (0.11-0.59); %Basophils 0.4 % (0.0-1.0); %Eosinophils 1.2 % (0.0-10.0); %Lymphocytes 10.3 % (21.0-51.0); %Monocytes 7.6 % (0.0-10.0); %Neutrophils 80.5 % (42.0-75.0); Hemoglobin 8.4 g/dL (12.0-16.0); Mean Corpuscular HGB CONC 32.5 g/dL (32.0-36.0); Mean Corpuscular Hemoglobin 29.9 pg (27.0-31.0); Mean Platelet Volume 6.6 fL (7.4-10.4); Platelet Count 546 thou/uL (130-400); RBC Distribution Width 12.9 % (11.5-14.5); Red Blood Cell (RBC) Count 2.79 mill/uL (4.20-5.40); White Blood Cell (WBC) Count 9.9 thou/uL (4.8-10.8)
[2018-12-27 10:45] LABS: ALT (SGPT) 17 U/L (8-55); AST (SGOT) 19 U/L (5-34); Alkaline Phosphatase 96 U/L (40-150); Anion Gap 12 mmol/L (10-20); BUN (Urea Nitrogen) 29 mg/dL (9.8-20.1); Bilirubin, Total 0.2 mg/dL (0.2-1.2); Calc. Creatinine Clearance 0 mL/min (70-130); Calcium 10.1 mg/dL (7.8-10.44); Carbon Dioxide 23 mmol/L (23-31); Chloride 103 mmol/L (98-107); Estimated GFR-MDRD 50; Glucose 108 mg/dL (83-110); Potassium 4.3 mmol/L (3.5-5.1); Sodium 134 mmol/L (136-145)
--- NOTE | 2018-12-27 10:54 | RAD ---
EXAM: 4 views of the right knee HISTORY: Knee pain after arthroplasty COMPARISON: None FINDINGS: No knee effusion is seen. The patient is status post right knee arthroplasty without periha rdware lucency or fracture. There is a small knee effusion. Overlying skin gallito are from recent surgery. IMPRESSION: Status post right knee arthroplasty without evidence of complication.
--- NOTE | 2018-12-27 11:11 | ULT ---
US Venous Doppler Rt Unilat History: Edema and pain Comparison: None. Findings: Real-time grayscale, color, and spectral analysis of the right lower extremity venous syste m was performed. The common femoral, femoral, proximal portions greater saphenous and deep femoral veins as well as the popliteal and posterior tibial veins were interrogated. Normal flow, augmentation, and compression. Medial thigh fluid collection. Impression: No deep venous thrombosis. Likely a hematoma within the mid thigh measuring up to 4.7 cm.
== END 2018-12-27 12:44 ==
LOC: ERS 09:39
DX: M96.89 Other intraoperative and postprocedural complications and disorders of the musculoskeletal system (principal); L03.116 Cellulitis of left lower limb; I73.9 Peripheral vascular disease, unspecified; G47.30 Sleep apnea, unspecified; E78.5 Hyperlipidemia, unspecified; I10 Essential (primary) hypertension; J44.9 Chronic obstructive pulmonary disease, unspecified; E11.40 Type 2 diabetes mellitus with diabetic neuropathy, unspecified; F03.90 Unspecified dementia, unspecified severity, without behavioral disturbance, psychotic disturbance, mood disturbance, and anxiety; F41.9 Anxiety disorder, unspecified; F32.9 Major depressive disorder, single episode, unspecified
CPT/HCPCS: 36415; 80053; 83605; 85025; 85652; 86140

== ENCOUNTER 2019-05-03 08:29 | Day surgery (SDC) | payer MEDICARE, BC, MEDICAID ==
[2019-05-03] MEDS ORDERED: Sodium Chloride 0.9% 20 ML ONE (08:56)
[2019-05-03] MEDS ORDERED: Furosemide 20 MG/2 ML VIAL SLOW IVP SCH (10:45)
[2019-05-03] MEDS ORDERED: diphenhydrAMINE 25 MG CAP PO SCH (10:45)
[2019-05-03] MEDS ORDERED: Acetaminophen 500 MG TAB PO SCH (10:45)
[2019-05-03] MEDS ORDERED: EPINEPHrine 1 MG/10 ML Abboject SYRINGE IVP PRN (10:48)
[2019-05-03] MEDS ORDERED: cloNIDine 0.1 MG TAB PO SCH (12:15)
[2019-05-03 13:41] VITALS: TEMP 98.6
[2019-05-03 16:11] VITALS: BP 188/85
== END 2019-05-03 16:16 | disposition home or self-care (01) ==
LOC: ONC/OP 08:29
PROVIDERS: ATTEND Family Medicine
DX: D64.9 Anemia, unspecified (principal); Z88.8 Allergy status to other drugs, medicaments and biological substances
CPT/HCPCS: 36430; 86850; 86900; 86901; 96375; J1940; P9016; Q0163

== ENCOUNTER 2019-05-05 08:50 | Emergency (ER) | payer MEDICARE, BC, MEDICAID ==
--- NOTE | 2019-05-05 10:02 | CT ---
CT Cervical Spine WO Con HISTORY: Neck pain status post fall. COMPARISON: None. FINDINGS: The bones are demineralized. The vertebral bodies are normal in height. There is severe dis c narrowing at C4-5 C5-6 and C6-7. The facets are in normal alignment. There is no significant canal stenosis. There is mild left foraminal narrowing at C5-6. There is no CT evidence of fracture. There are emphysematous lung changes. Carotid bulb calcifications are also noted. IMPRESSION: No CT evidence of fracture the cervical spine.
--- NOTE | 2019-05-05 10:21 | CT ---
CT BRAIN NONCONTRAST: DATE: TIME: 0947 hours HISTORY: 73-year-old female status post acute head trauma from fall. FINDINGS: There is no midline shift or any other mass effect. There is no evidence of acute intracranial hemor rhage, large cortical infarct, obstructive hydrocephalus, or extraaxial fluid collection. The calvar ium is intact. There is diffuse parenchymal volume loss. There are low attenuation areas in the whi te matter. These are nonspecific, but in a patient of this age, they are probably chronic ischemic w abby matter changes due to microvascular atherosclerosis. IMPRESSION: 1. No acute intracranial findings. 2. Involutional changes and chronic ischemic white matter changes. jn [] POS: TPC
--- NOTE | 2019-05-08 07:22 | RAD ---
Exam: Left ankle 3 views: HISTORY: Injury from a fall FINDINGS: Severe bony demineralization. Internal fixation screws stabilize the medial malleolus. Healed distal fibular fracture. Minimal arthrosis of the tibiotalar and subtalar joints. No evidence for acute fracture or dislocation. IMPRESSION: Severe bone demineralization. Old fractures. No acute fractures. Mild arthrosis.
== END 2019-05-05 13:19 ==
LOC: ERS 08:50
DX: S00.83XA Contusion of other part of head, initial encounter (principal); M25.572 Pain in left ankle and joints of left foot; L89.109 Pressure ulcer of unspecified part of back, unspecified stage; F03.90 Unspecified dementia, unspecified severity, without behavioral disturbance, psychotic disturbance, mood disturbance, and anxiety; G47.30 Sleep apnea, unspecified; D64.9 Anemia, unspecified; E78.5 Hyperlipidemia, unspecified; F41.9 Anxiety disorder, unspecified; F32.9 Major depressive disorder, single episode, unspecified; I10 Essential (primary) hypertension; I25.10 Atherosclerotic heart disease of native coronary artery without angina pectoris; I73.9 Peripheral vascular disease, unspecified; J44.9 Chronic obstructive pulmonary disease, unspecified; E11.40 Type 2 diabetes mellitus with diabetic neuropathy, unspecified; M81.0 Age-related osteoporosis without current pathological fracture; W05.0XXA Fall from non-moving wheelchair, initial encounter
CPT/HCPCS: 70450; 72125

== ENCOUNTER 2019-05-22 14:10 | Outpatient (CLI) | payer MEDICARE, BC, MEDICAID ==
--- NOTE | 2019-05-22 16:20 | ULT ---
RENAL ULTRASOUND: History: Urinary retention. FINDINGS: Real-time imaging of the right and left kidneys show normal sized kidneys. The right kidney measures 10.2 and the left kidney 9.6 cm in size. Several right renal cysts are noted, one measuring 1.2 cm an d the largest measuring 2.5 cm. No obstruction. The left kidney shows no evidence of mass. No cysts o r obstruction. The bladder was 314 cc in volume. The patient was unable to void. IMPRESSION: 1. Right renal cyst. 2. Patient was unable to void. The void volume of the bladder was 314 cc. POS: KATHY
== END 2019-05-22 14:11 | disposition home or self-care (01) ==
LOC: BICULT 14:10
PROVIDERS: ATTEND Urology
DX: R33.9 Retention of urine, unspecified (principal); N28.1 Cyst of kidney, acquired
CPT/HCPCS: 76770

== ENCOUNTER 2019-06-09 17:10 | Emergency (ER) | payer MEDICARE, BC, MEDICAID ==
--- NOTE | 2019-06-09 19:05 | RAD ---
XR Hip Rt 2-3 View INDICATION: Fall with right hip pain COMPARISON: February 15, 2012 FINDINGS: Bones: No acute fracture or subluxation demonstrated. There is diffuse osteopenia. There is a right t otal hip prosthesis. There is been interval placement of cerclage bands surrounding the proximal right femur with revision of the right femoral prosthesis. Hip joint: Right total hip arthroplasty SI joints and symphysis pubis: Radiographically normal. Intrapelvic contents: Prominent endograft stent within the right hemipelvis. There are surgical clips within the right inguinal region. There is severe vascular calcifications involving the peripheral soft tissues of the right leg Surrounding soft tissues: Radiographically normal. IMPRESSION: 1. No acute osseous abnormality.
== END 2019-06-09 21:16 | disposition home or self-care (01) ==
LOC: ERS 17:10
DX: M25.551 Pain in right hip (principal); E11.40 Type 2 diabetes mellitus with diabetic neuropathy, unspecified; F03.90 Unspecified dementia, unspecified severity, without behavioral disturbance, psychotic disturbance, mood disturbance, and anxiety; D64.9 Anemia, unspecified; G47.30 Sleep apnea, unspecified; I10 Essential (primary) hypertension; I25.10 Atherosclerotic heart disease of native coronary artery without angina pectoris; E78.5 Hyperlipidemia, unspecified; J44.9 Chronic obstructive pulmonary disease, unspecified; M81.0 Age-related osteoporosis without current pathological fracture; F41.9 Anxiety disorder, unspecified; F32.9 Major depressive disorder, single episode, unspecified; Z79.84 Long term (current) use of oral hypoglycemic drugs; Z79.899 Other long term (current) drug therapy; Z79.891 Long term (current) use of opiate analgesic; W05.0XXA Fall from non-moving wheelchair, initial encounter